=== PATIENT | male | born 1940 | race Caucasian/White ===

== ENCOUNTER 2018-11-05 14:42 | Inpatient (IN) | payer OTHER ==
[2018-11-05] MEDS ORDERED: NS 1,000 ML IV ONE ×2 (17:44→19:44)
--- NOTE | 2018-11-05 17:56 | EDPHY ---
H & P Stated Complaint: severe diarrhea x 2 days. denies n/v Time Seen by Provider: 11/05/18 17:43 HPI/ROS: CHIEF COMPLAINT: Diarrhea, generalized weakness HISTORY OF PRESENT ILLNESS: 78-year-old male with Parkinson's disease presents with 2 day history of diarrhea. Onset watery diarrhea without blood 2 days ago. Too many episodes of diarrhea count, according to the patient. Associated with mild abdominal cramping. No fever, nausea or vomiting. Multiple residents at [facility] have similar symptoms. REVIEW OF SYSTEMS: complete 10 point ROS reviewed and is negative except for the noted elements in the HPI Source: Patient - Medical/Surgical History Hx Asthma: No Hx Chronic Respiratory Disease: No Hx Diabetes: No Hx Cardiac Disease: Yes Hx Renal Disease: No Hx Cirrhosis: No Hx Alcoholism: No Hx HIV/AIDS: No Hx Splenectomy or Spleen Trauma: No Other PMH: HTN, Parkinsons, back surgery, hernia repair - Social History Smoking Status: Former smoker Drug Use: None Additional Social History: Lives at [facility] - Physical Exam Exam: General Appearance: Alert, pleasant, nontoxic-appearing Eyes: Pupils equal and round, no conjunctival pallor or injection ENT, Mouth: Mucous membranes slightly dry Neck: Normal inspection Respiratory: Lungs are clear to auscultation Cardiovascular: Regular rate and rhythm Gastrointestinal: Abdomen is soft and nontender Neurological: A&O, nonfocal exam Skin: Warm and dry, no rash Extremities: Nontender, no pedal edema Psychiatric: Mood and affect normal Constitutional: Initial Vital Signs Temperature (C) 36.3 C 11/05/18 14:51 Heart Rate 75 11/05/18 14:51 Respiratory Rate 18 11/05/18 14:51 Blood Pressure 129/105 H 11/05/18 14:51 O2 Sat (%) 96 11/05/18 14:51 O2 Delivery Mode Room Air Allergies/Adverse Reactions: Sulfa (Sulfonamide Antibiotics) Allergy (Verified 11/05/18 19:51) whole body rash Home Medications: Medication Instructions Recorded Carbidopa/Levo Cr 50/200Mg 2 tab PO BID 11/05/18 [SINEMET CR 50/200 MG (*)] Carbidopa/Levodopa 25/100Mg 2 tab PO 06,10,12,1430,18 11/05/18 [Sinemet 25/100 MG (*)] Cyanocobalamin [Vitamin B12 (*)] 100 mcg PO DAILY 11/05/18 Entacapone [Comtan 200 MG (RX)] 200 mg PO 06,10,12,1430,18 11/05/18 Ferrous Sulfate [Ferrous Sulf 325 325 mg PO TID 11/05/18 MG (*)] Latanoprost 0.005% [Xalatan 0.005% 1 drops EACHEYE HS 11/05/18 (*)] Lisinopril [Zestril 10 mg (*)] 15 mg PO HS 11/05/18 Naproxen [Naprosyn] 500 mg PO BID 11/05/18 Pramipexole Di-HCl [Mirapex 1 mg 0.5 mg PO 06,10,12,1430 11/05/18 (*)] Simvastatin [Zocor] 20 mg PO HS 11/05/18 Vit C/Dl-E AC/Lut/Copper/Znox 1 each PO BID 11/05/18 [Preservision Softgel] Medical Decision Making ED Course/Re-evaluation: This patient presents with diarrhea and dehydration. Initial blood pressure is 90/60. IV normal saline 1 L given and a GI pathogen panel was sent. Creatinine 2.0, no prior creatinine for comparison. Probable acute renal failure secondary to dehydration. 7:15 p.m.-Blood pressure 100/55, patient feels and looks better. GI pathogen panel still pending. IV fluids infusing. Will admit for rehydration and further observation. The hospitalist service was consulted for admission. Abdominal exam remains benign. Differential Diagnosis: Differential diagnosis includes though it is not limited to appendicitis, cholecystitis, diverticulitis, pyelonephritis, bowel perforation, small bowel obstruction. - Data Points Laboratory Results: Laboratory Results 11/05/18 18:00 11/05/18 18:00 11/05/18 11/05/18 18:00 18:00 WBC 6.28 10^3/uL 10^3/uL (3.80-9.50) RBC 4.19 10^6/uL L 10^6/uL (4.40-6.38) Hgb 13.5 g/dL L g/dL (13.7-17.5) Hct 41.3 % % (40.0-51.0) MCV 98.6 fL fL (81.5-99.8) MCH 32.2 pg pg (27.9-34.1) MCHC 32.7 g/dL g/dL (32.4-36.7) RDW 12.1 % % (11.5-15.2) Plt Count 164 10^3/uL 10^3/uL (150-400) MPV 11.4 fL fL (8.7-11.7) Neut % (Auto) 82.7 % H % (39.3-74.2) Lymph % (Auto) 10.4 % L % (15.0-45.0) [place]pson % (Auto) 5.3 % % (4.5-13.0) Eos % (Auto) 1.1 % % (0.6-7.6) Baso % (Auto) 0.2 % L % (0.3-1.7) Nucleat RBC Rel Count 0.0 % % (0.0-0.2) Absolute Neuts (auto) 5.20 10^3/uL 10^3/uL (1.70-6.50) Absolute Lymphs (auto) 0.65 10^3/uL L 10^3/uL (1.00-3.00) Absolute Monos (auto) 0.33 10^3/uL 10^3/uL (0.30-0.80) Absolute Eos (auto) 0.07 10^3/uL 10^3/uL (0.03-0.40) Absolute Basos (auto) 0.01 10^3/uL L 10^3/uL (0.02-0.10) Absolute Nucleated RBC 0.00 10^3/uL 10^3/uL (0-0.01) Immature Gran % 0.3 % % (0.0-1.1) Immature Gran # 0.02 10^3/uL 10^3/uL (0.00-0.10) Sodium 138 mEq/L mEq/L (135-145) Potassium 4.5 mEq/L mEq/L (3.5-5.2) Chloride 109 mEq/L mEq/L (97-110) Carbon Dioxide 22 mEq/l mEq/l (22-31) Anion Gap 7 mEq/L mEq/L (6-14) BUN 56 mg/dL H mg/dL (7-23) Creatinine 2.0 mg/dL H mg/dL (0.7-1.3) Estimated GFR 32 Glucose 105 mg/dL H mg/dL (70-100) Calcium 8.6 mg/dL mg/dL (8.5-10.4) Microbiology Results: MICROBIOLOGY 11/05/18 15:30 Stool Gastrointestinal Tract Panel (PCR) - Final Norovirus Gi/Gii Medications Given: Atorvastatin Calcium (Lipitor) 10 mg PO HS FERNANDO Stop: 05/04/19 20:59 Last Admin: 11/05/18 22:40 Dose: 10 mg Ferrous Sulfate (Ferrous Sulfate) 325 mg PO TID FERNANDO Stop: 05/04/19 21:59 Last Admin: 11/05/18 22:40 Dose: 325 mg Sodium Chloride (Ns) 1,000 mls @ 125 mls/hr IV CONT FERNANDO Stop: 05/04/19 21:29 Last Admin: 11/05/18 22:41 Dose: 1,000 mls Discontinued Medications Sodium Chloride (Ns) 1,000 mls @ 0 mls/hr IV EDNOW ONE; Wide Open PRN Reason: Protocol Stop: 11/05/18 17:45 Last Admin: 11/05/18 18:04 Dose: 1,000 mls Sodium Chloride (Ns) 1,000 mls @ 0 mls/hr IV EDNOW ONE; Wide Open PRN Reason: Protocol Stop: 11/05/18 19:45 Last Admin: 11/05/18 19:56 Dose: 1,000 mls Departure - Departure Disposition: [facility] In[facility] Acute Clinical Impression: Diarrhea Qualifiers: Diarrhea type: presumed infectious Qualified Code(s): R19.7 - Diarrhea, unspecified Acute renal failure Qualifiers: Acute renal failure type: unspecified Qualified Code(s): N17.9 - Acute kidney failure, unspecified Condition: Fair
[2018-11-05 18:16] LABS: PLATELET COUNT 164 10^3/uL (150-400)
[2018-11-05] MEDS ORDERED: HYDROmorphONE/DILAUDID 1 MG/ML INJ IVP PRN (21:17)
[2018-11-05] MEDS ORDERED: ONDANSETRON DISINTEGRATING 4 MG TAB PO PRN (21:17)
[2018-11-05] MEDS ORDERED: ACETAMINOPHEN 325 MG TAB PO PRN (21:17)
[2018-11-05] MEDS ORDERED: ONDANSETRON 4 MG/2 ML VIAL IVP PRN (21:17)
[2018-11-05] MEDS ORDERED: oxyCODONE IR 5 MG TAB PO PRN (21:17)
--- NOTE | 2018-11-05 21:21 | PDGENHP ---
History and Physical - Chief Complaint diarrhea - History of Present Illness 78yo M with Parkinson's disease here with 2 days of watery diarrhea. Having over 10 bowel movements/day. Non-bloody. Some abdominal cramping and his left inguinal hernia (that he's known about) is bothering him a bit more than usual. He states that "virtually everyone" at [facility] (where he lives) also has diarrhea. Denies nausea, vomiting, fevers, chills. No recent antibiotics. In the ED, his stool sample tested positive for norovirus. He had a BP of 90/60s ( he carries diagnosis of hypertension). He was also found to have an elevated creatinine and is being admitted for further management. History Information - Allergies/Home Medication List Allergies/Adverse Reactions: Sulfa (Sulfonamide Antibiotics) Allergy (Verified 11/05/18 19:51) whole body rash Home Medications: Carbidopa/Levo Cr 50/200Mg [SINEMET CR 50/200 MG (*)] 2 tab PO BID 11/05/18 [ Last Taken 11/05/18 09:00] Carbidopa/Levodopa 25/100Mg [Sinemet 25/100 MG (*)] 2 tab PO 06,10,12,1430,18 [Last Taken 11/05/18 14:30] Cyanocobalamin [Vitamin B12 (*)] 100 mcg PO DAILY 11/05/18 [Last Taken Unknown] Entacapone [Comtan 200 MG (RX)] 200 mg PO 06,10,12,1430,18 11/05/18 [Last Taken 11/05/18 14:30] Ferrous Sulfate [Ferrous Sulf 325 MG (*)] 325 mg PO TID 11/05/18 [Last Taken Unknown] Latanoprost 0.005% [Xalatan 0.005% (*)] 1 drops EACHEYE HS 11/05/18 [Last Taken 11/04/18] Lisinopril [Zestril 10 mg (*)] 15 mg PO HS 11/05/18 [Last Taken 11/04/18] Naproxen [Naprosyn] 500 mg PO BID 11/05/18 [Last Taken 11/05/18 09:00] Pramipexole Di-HCl [Mirapex 1 mg (*)] 0.5 mg PO 06,10,12,1430 11/05/18 [Last Taken 11/05/18 14:30] Simvastatin [Zocor] 20 mg PO HS 11/05/18 [Last Taken 11/04/18] Vit C/Dl-E AC/Lut/Copper/Znox [Preservision Softgel] 1 each PO BID 11/05/18 [ Last Taken 11/05/18 09:00] I have personally reviewed and updated: family history, medical history, social history, surgical history - Past Medical History Additional medical history: Parkinson's disease, HTN, HLD, iron deficiency - Surgical History Additional surgical history: right inguinal hernia repair x2, spine surgery - Family History Positive for: non-pertinent - Social History Smoking Status: Former smoker Alcohol Use: Rarely Drug Use: None Additional social history: Lives in [facility] for last 2.5 years. [place] in area. Bikes 10-15 miles/day. Review of Systems Review of Systems: ROS: 10pt was reviewed & negative except for what was stated in HPI & below Physical Exam Physical Exam: Temp Pulse Resp BP Pulse Ox 36.4 C 70 16 122/61 H 97 11/05/18 20:40 11/05/18 20:40 11/05/18 20:40 11/05/18 20:40 11/05/18 20:40 O2 (L/minute) 95 Constitutional: no apparent distress, appears nourished, not in pain Eyes: PERRL, anicteric sclera, EOMI Ears, Nose, Mouth, Throat: dry mucous membranes Cardiovascular: regular rate and rhythym, no murmur, rub, or gallop, No edema Respiratory: no respiratory distress, no rales or rhonchi, clear to auscultation Gastrointestinal: normoactive bowel sounds, no palpable masses, tenderness ( lower quadrants) Genitourinary: no bladder fullness, no bladder tenderness Skin: warm, normal color, no rashes or abrasions, no fluctuance, no induration, No mottled Musculoskeletal: full muscle strength, no muscle tenderness, normal joint ROM, no joint effusions Neurologic: AAOx3 Psychiatric: interacting appropriately, not anxious, not encephalopathic, thought process linear Lab Data & Imaging Review 11/05/18 18:00 11/05/18 18:00 WBC 6.28 10^3/uL (3.80-9.50) 11/05/18 18:00 RBC 4.19 10^6/uL (4.40-6.38) L 11/05/18 18:00 Hgb 13.5 g/dL (13.7-17.5) L 11/05/18 18:00 Hct 41.3 % (40.0-51.0) 11/05/18 18:00 MCV 98.6 fL (81.5-99.8) 11/05/18 18:00 MCH 32.2 pg (27.9-34.1) 11/05/18 18:00 MCHC 32.7 g/dL (32.4-36.7) 11/05/18 18:00 RDW 12.1 % (11.5-15.2) 11/05/18 18:00 Plt Count 164 10^3/uL (150-400) 11/05/18 18:00 MPV 11.4 fL (8.7-11.7) 11/05/18 18:00 Neut % (Auto) 82.7 % (39.3-74.2) H 11/05/18 18:00 Lymph % (Auto) 10.4 % (15.0-45.0) L 11/05/18 18:00 [place] % (Auto) 5.3 % (4.5-13.0) 11/05/18 18:00 Eos % (Auto) 1.1 % (0.6-7.6) 11/05/18 18:00 Baso % (Auto) 0.2 % (0.3-1.7) L 11/05/18 18:00 Nucleat RBC Rel Count 0.0 % (0.0-0.2) 11/05/18 18:00 Absolute Neuts (auto) 5.20 10^3/uL (1.70-6.50) 11/05/18 18:00 Absolute Lymphs (auto) 0.65 10^3/uL (1.00-3.00) L 11/05/18 18:00 Absolute Monos (auto) 0.33 10^3/uL (0.30-0.80) 11/05/18 18:00 Absolute Eos (auto) 0.07 10^3/uL (0.03-0.40) 11/05/18 18:00 Absolute Basos (auto) 0.01 10^3/uL (0.02-0.10) L 11/05/18 18:00 Absolute Nucleated RBC 0.00 10^3/uL (0-0.01) 11/05/18 18:00 Immature Gran % 0.3 % (0.0-1.1) 11/05/18 18:00 Immature Gran # 0.02 10^3/uL (0.00-0.10) 11/05/18 18:00 Sodium 138 mEq/L (135-145) 11/05/18 18:00 Potassium 4.5 mEq/L (3.5-5.2) 11/05/18 18:00 Chloride 109 mEq/L (97-110) 11/05/18 18:00 Carbon Dioxide 22 mEq/l (22-31) 11/05/18 18:00 Anion Gap 7 mEq/L (6-14) 11/05/18 18:00 BUN 56 mg/dL (7-23) H 11/05/18 18:00 Creatinine 2.0 mg/dL (0.7-1.3) H 11/05/18 18:00 Estimated GFR 32 11/05/18 18:00 Glucose 105 mg/dL (70-100) H 11/05/18 18:00 Calcium 8.6 mg/dL (8.5-10.4) 11/05/18 18:00 Assessment & Plan Assessment: 78yo M with Parkinson's disease who lives in assisted living here with 2 days of watery diarrhea found to have norovirus. Plan: 1. Diarrhea 2/2 norovirus infection: non-peritoneal abdomen - Supportive care with IVF, anti-emetics, electrolyte replacement - Contact and droplet precautions 2. Elevated creatinine: No prior for comparison but suspect KARISSA due to dehydration. - IVF as above and recheck in AM, if not improving would investigate further 3. Hypotension: Suspect related to hypovolemia. Improving with fluids and now normotensive. - Management as above 4. Parkinson's disease - Continue home meds - PT/OT VTE ppx: LMWH Code: full Diet: regular as tolerates Dispo: Admit under observation
[2018-11-05] MEDS: ATORVASTATIN CALCIUM 10 MG TAB PO SCH (22:40)
[2018-11-05] MEDS: FERROUS SULFATE 325 MG TAB PO SCH (22:40)
[2018-11-05] MEDS: NS 1,000 ML IV SCH (22:41)
[2018-11-05] MEDS: PRAMIPEXOLE 1 MG TAB PO SCH (23:41)
[2018-11-05] MEDS: CARBIDOPA/LEVO CR 50 MG/200 MG TAB PO SCH (23:41)
[2018-11-05] MEDS: ENTACAPONE 200 MG TAB PO SCH (23:43)
[2018-11-06] MEDS: ENTACAPONE 200 MG TAB PO SCH ×5 (05:34→17:48)
[2018-11-06] MEDS: PRAMIPEXOLE 1 MG TAB PO SCH ×4 (05:35→14:54)
[2018-11-06 05:39] LABS: PLATELET COUNT 124 10^3/uL (150-400)
[2018-11-06] MEDS: CARBIDOPA/LEVODOPA 25 MG/100 MG TAB PO SCH ×5 (05:43→17:48)
[2018-11-06] MEDS: ENOXAPARIN 30 MG/0.3 ML SYR SC SCH (07:46)
[2018-11-06] MEDS: FERROUS SULFATE 325 MG TAB PO SCH ×3 (07:46→20:55)
[2018-11-06] MEDS: CARBIDOPA/LEVO CR 50 MG/200 MG TAB PO SCH ×2 (08:55→20:55)
--- NOTE | 2018-11-06 11:04 | ASMTCMCOM ---
CM Note CM Note Notes: CM reviewed chart for d/c planning. Pt is an 78y/o male with Parkinson's disease who presented at the ED with 2 days of diarrhea accompanied by mild abdominal cramping. Pt lives at [facility] in their independent living program. PT and OT have not been ordered. He does receive these when he is home. [facility] was contacted and due to his living independently they will not require records prior to his return. D/C Plan: Anticipate independent. Date Signed: 11/06/2018 11:04 AM Electronically Signed By:Lauren Ballard
--- NOTE | 2018-11-06 13:19 | ASMTCMCOM ---
CM Note CM Note Notes: Per Dr augustine, D/C likely tomorrow. D/C Plan: [facility] Date Signed: 11/06/2018 01:18 PM Electronically Signed By:Lauren Ballard
[2018-11-06] MEDS: NS 1,000 ML IV SCH ×2 (15:13→20:56)
--- NOTE | 2018-11-06 16:10 | HOSPPROG ---
Hospitalist Progress Note Assessment/Plan: 78yo M with Parkinson's disease who lives in assisted living here with 2 days of watery diarrhea found to have norovirus. 1. Diarrhea 2/2 norovirus infection: non-peritoneal abdomen - Supportive care with IVF, anti-emetics, electrolyte replacement - Contact and droplet precautions 2. Elevated creatinine: No prior for comparison but suspect KARISSA due to dehydration. - S/p IVF, Cr improved from 2.0 to 1.3 this AM, continue IVF, repeat Cr in the AM 3. Hypotension: Suspect related to hypovolemia. Improving with fluids and now normotensive. 4. Parkinson's disease - Continue home meds - PT/OT VTE ppx: LMWH Code: full Diet: regular as tolerates Dispo: Pending clinical course, if Cr continues to improve with continued improvement in symptoms will d/c tomorrow Subjective: Patient reports improvement in fatigue this AM Objective: Vital Signs Temp Pulse Resp BP Pulse Ox 36.8 C 66 16 100/55 L 95 11/06/18 07:40 11/06/18 07:40 11/06/18 07:40 11/06/18 07:40 11/06/18 07:40 Laboratory Results 11/06/18 05:07 11/06/18 05:07 11/05/18 11/06/18 11/07/18 05:59 05:59 05:59 Intake Total 3320 Output Total 225 400 Balance 3095 -400 - Physical Exam Constitutional: no apparent distress Eyes: PERRL Ears, Nose, Mouth, Throat: moist mucous membranes Cardiovascular: regular rate and rhythym Respiratory: no respiratory distress Gastrointestinal: soft, non-tender abdomen Skin: warm Neurologic: AAOx3 Psychiatric: interacting appropriately ICD10 Worksheet Patient Problems: Problems Problem Status Onset Acute renal failure Acute Diarrhea Acute
[2018-11-06] MEDS ORDERED: PRAMIPEXOLE 1 MG TAB PO SCH (18:30)
[2018-11-06] MEDS: ATORVASTATIN CALCIUM 10 MG TAB PO SCH (20:55)
[2018-11-06] MEDS ORDERED: LATANOPROST 0.005% 2.5 ML OPHT DROPS EACHEYE SCH (21:00)
--- NOTE | 2018-11-06 21:21 | PDMN ---
Medical Necessity Medical necessity: Change to inpt as of 11/06/18 @ 15:41 per MD order and MCG M- 170, Gastroenteritis. 78 y/o w/Parkinsons disease admitted w/diarrhea sec to norovirus, KARISSA, and hypotension. Upgraded to inpt, need for further IVF, follow BUN/creatinine, PT/OT evals pending, calcium low at 7.6. Est LOS>2MN for ongoing management of above.
[2018-11-07] MEDS ORDERED: MELATONIN 3 MG TAB PO PRN (01:08)
[2018-11-07] MEDS: ENTACAPONE 200 MG TAB PO SCH ×2 (05:13→10:51)
[2018-11-07] MEDS: PRAMIPEXOLE 1 MG TAB PO SCH ×2 (05:13→10:51)
[2018-11-07] MEDS: CARBIDOPA/LEVODOPA 25 MG/100 MG TAB PO SCH ×2 (05:13→10:50)
[2018-11-07] MEDS: NS 1,000 ML IV SCH (05:15)
[2018-11-07] MEDS: CARBIDOPA/LEVO CR 50 MG/200 MG TAB PO SCH (07:52)
[2018-11-07] MEDS: FERROUS SULFATE 325 MG TAB PO SCH (07:52)
[2018-11-07] MEDS: ENOXAPARIN 30 MG/0.3 ML SYR SC SCH (07:52)
[2018-11-07 08:10] VITALS: BP 123/69
--- NOTE | 2018-11-07 10:06 | ASMTLACE ---
LACE Length of stay for Answers: 1 day current admission Acuity / Level of Answers: Yes Care: Did the patient have an inpatient admission? Comorbidities - select Answers: Opioid dependence all that apply / Chronic pain Other Notes: Parkinson's disease; HTN; HLD # of Emergency department Answers: 1-2 visits in the last 6 months Score: 10 Date Signed: 11/07/2018 10:06 AM Electronically Signed By:Mylene Montiel RN
--- NOTE | 2018-11-07 12:57 | PDDCSUM ---
Discharge Summary Discharge Summary: Date of Admission: 11/05/2018 Date of Discharge: 11/07/2018 Consults: N/A Followup: PCP Hospital Course Problem List: 78yo M with Parkinson's disease who lives in assisted living admitted with 2 days of watery diarrhea found to have norovirus. 1. Diarrhea 2/2 norovirus infection: non-peritoneal abdomen - Supportive care with IVF, anti-emetics, electrolyte replacement - Contact and droplet precautions 2. Elevated creatinine: No prior for comparison but suspect KARISSA due to dehydration. - S/p IVF, Cr improved from 2.0 to 0.9 this AM 3. Hypotension: Suspect related to hypovolemia. Improved with fluids and now normotensive. 4. Parkinson's disease - Continue home meds - PT/OT Time spent on discharge was >35 minutes with >50% of time spent on patient education and counseling.
--- NOTE | 2018-11-07 16:02 | ASDISCHSUM ---
Discharge Information Plan Status:Home with No Needs Medically Cleared to Leave: Discharge Date:11/07/2018 11:52 AM CM D/C Disposition: ADT D/C Disposition:Home, Routine, Self-Care Projected Discharge Date:11/08/2018 11:00 AM Transportation at D/C:Family Discharge Delay Reason: Follow-Up Date:11/08/2018 11:00 AM Discharge Slot: Final Diagnosis: Placement Information Referral Type:*Usp/SNF Referral ID:[id number] Provider Name: Address 1: Phone Number: Address 2: Fax Number: City: Selection Factors: State: Patient Contact Information Contact Name:LISSETT Relationship:Daughter Address: Work Phone: City: [facility] Phone: [facility] Code: Email: Financial Information Financial Class:Medicare Primary Plan Desc:MEDICARE INPATIENT Primary Plan Number:[id number] Secondary Plan Desc: Secondary Plan Number: Assessment Information LACE LACE Length of stay for Answers: 1 day current admission Acuity / Level of Answers: Yes Care: Did the patient have an inpatient admission? Comorbidities - select Answers: Opioid dependence all that apply / Chronic pain Other Notes: Parkinson's disease; HTN; HLD # of Emergency department Answers: 1-2 visits in the last 6 months Score: 10 Date Signed: 11/07/2018 10:06 AM Electronically Signed By:Mylene Montiel RN [facility] CM Progress Note CM Note CM Note Notes: KORTNEY reviewed chart for d/c planning. Pt is an 78y/o male with Parkinson's disease who presented at the ED with 2 days of diarrhea accompanied by mild abdominal cramping. Pt lives at [facility] in their independent living program. PT and OT have not been ordered. He does receive these when he is home. [facility] was contacted and due to his living independently they will not require records prior to his return. D/C Plan: Anticipate independent. Date Signed: 11/06/2018 11:04 AM Electronically Signed By:Lauren Ballard [facility] CM Progress Note CM Note CM Note Notes: Per Yuly Nieto likely tomorrow. D/C Plan: [facility] Date Signed: 11/06/2018 01:18 PM Electronically Signed By:Lauren Ballard Intervention Information Intervention Type:*Occurence 72 Date of Service:11/07/2018 12:16 PM Patient Type:Inpatient Staff Member:Oneida Bush Hours: Discipline: Severity: Comment:
== END 2018-11-07 11:52 | disposition home or self-care (01) | DRG 392 ==
LOC: F3E 20:20 → OBSVTOIN 11-06 15:41
PROVIDERS: ADMIT Internal Medicine; ATTEND Internal Medicine
DX: A08.11 Acute gastroenteropathy due to Norwalk agent (principal); N17.9 Acute kidney failure, unspecified; E86.0 Dehydration; I95.9 Hypotension, unspecified; G20 Parkinson's disease; I10 Essential (primary) hypertension
CPT/HCPCS: G0378; J1650

== ENCOUNTER 2019-01-06 14:16 | Inpatient (IN) | payer OTHER ==
--- NOTE | 2019-01-06 14:56 | EDPHY ---
H & P Time Seen by Provider: 01/06/19 14:55 HPI/ROS: CHIEF COMPLAINT: Back pain radiating to right groin and leg HISTORY OF PRESENT ILLNESS: Patient was recently pretty active riding his bicycle as much as 40 miles at a time last summer. He did have 2 falls back last week in July and in August and had evaluation at the [facility] after that. He was hospitalized for norovirus in October. He was last seen at the [facility] on December 20. Over the past 2 weeks he said he is having worsening back pain which radiates to his right groin and down his right leg. Sometimes worse with movement but better lying down. It is also associated with pain over his right inguinal hernia repair area. No vomiting or diarrhea. No incontinence or weakness or numbness of the leg or foot. The nurse's notes stated right leg paresthesia but the patient denies any decreased sensation there. Patient says his pain is more severe over the last 2 weeks and he is using a wheelchair and can't walk. He is in independent living at [facility]. Symptoms severe. REVIEW OF SYSTEMS: Eye: no change in vision ENT: no sore throat Cardiac: no chest pain or syncope Pulmonary: no cough or SOB Abdomen: HPI Musculoskeletal: HPI Skin: no rash Neuro: HPI Constitutional: no fever : no urinary symptoms A comprehensive 10 point review of systems is otherwise negative aside from elements mentioned in the history of present illness. PAST MEDICAL HISTORY: Includes hypertension and Parkinson's, back surgery and right inguinal hernia repair Social history: Independent living at [facility] General Appearance: Alert and conversant, cooperative. Eyes: No scleral icterus. ENT, Mouth: Normal mucous membranes. Respiratory: Normal respiratory effort, breath sounds equal, lungs are clear to auscultation. Cardiovascular: Regular rate and rhythm. Gastrointestinal: Abdomen is soft and non tender. Not distended, normal bowel sounds, no hernia palpated. Normal male . Neurological: Alert, face symmetric, normal motor and sensory in extremities. No clonus, toes downgoing bilaterally, can lift each leg above the bed independently. Right patellar reflexes 1+ and left is 2+. Skin: Warm and dry, no rashes. Musculoskeletal: No peripheral edema. No midline spinal tenderness. Psychiatric: Not agitated. Emergency Department course/MDM: Patient presents with more likely sciatic symptoms. He does have some abdominal pain. He presents with a CT report from the [facility] dated December 20 which I suspect is not his actual images. The CT report reference is a gastric pull-through and the patient states he has never had gastric surgery before. Plan for pain medication, labs, lumbar spine x-ray, admission for further workup. Unable to ambulate so inappropriate to discharge back to independent living. The at this point I think clinically it is unlikely that he has cauda equina syndrome, acute surgical abdominal process, spinal column fracture, acute infectious process. Smoking Status: Former smoker Constitutional: Initial Vital Signs Temperature (C) 36.5 C 01/06/19 14:38 Heart Rate 75 01/06/19 14:38 Respiratory Rate 18 01/06/19 14:38 Blood Pressure 144/70 H 01/06/19 14:38 O2 Sat (%) 95 01/06/19 14:38 O2 Delivery Mode Room Air Allergies/Adverse Reactions: Sulfa (Sulfonamide Antibiotics) Allergy (Verified 01/06/19 14:38) whole body rash Home Medications: Medication Instructions Recorded Carbidopa/Levo Cr 50/200Mg 2 tab PO BID 11/05/18 [SINEMET CR 50/200 MG (*)] Carbidopa/Levodopa 25/100Mg 2 tab PO 06,10,12,1430,18 11/05/18 [Sinemet 25/100 MG (*)] Entacapone [Comtan] 200 mg PO 06,10,12,1430,18 11/05/18 Ferrous Sulfate [Ferrous Sulf 325 325 mg PO TID 11/05/18 MG (*)] Latanoprost 0.005% [Xalatan 0.005% 1 drops EACHEYE HS 11/05/18 (*)] Lisinopril [Zestril 10 mg (*)] 15 mg PO BID 11/05/18 Naproxen [Naprosyn] 500 mg PO BID 11/05/18 Pramipexole Di-HCl [Mirapex 1 mg 0.5 mg PO 10,12,1430,18 11/05/18 (*)] Simvastatin [Zocor] 10 mg PO HS 11/05/18 Acetaminophen [Tylenol 8 Hour] 650 mg PO Q8HRS PRN 01/06/19 C/E/Zn/Cu/OM3/DHA/EPA/LUT/ZEAX 1 each PO BID 01/06/19 [Preservision Areds 2 Softgel] Cholecalciferol Vit D3 [Vitamin D3 1,000 units PO DAILY 01/06/19 (*)] Cyanocobalamin [Vitamin B12 (*)] 1,000 mcg PO DAILY 01/06/19 Diclofenac Sodium 1% [Voltaren Gel 2 gm TP QID PRN 01/06/19 (*)] traMADol [Ultram 50 mg (*)] 50 mg PO Q4 PRN 01/06/19 Medical Decision Making - Diagnostics Imaging Results: Imaging Impressions Hip X-Ray 01/06/19 15:16 Impression: Evidence of underlying femoral acetabular impingement, cam type, right hip. Mild early degenerative change right hip. No evidence for acute fracture. Lumbar Spine X-Ray 01/06/19 15:16 Impression: Postsurgical changes of fusion L4-L5, as above. Mild anterolisthesis of L3 on L4 and L4 on L5. Multilevel degenerative disk and degenerative joint disease. Levoscoliotic curvature. Imaging: I viewed and interpreted images myself Consult/Admit Bed Type: [place] [id number] - Data Points Laboratory Results: Laboratory Results 01/06/19 15:25 01/06/19 15:25 01/06/19 01/06/19 01/06/19 15:35 15:25 15:25 WBC 5.02 10^3/uL 10^3/uL (3.80-9.50) RBC 3.88 10^6/uL L 10^6/uL (4.40-6.38) Hgb 12.8 g/dL L g/dL (13.7-17.5) Hct 38.7 % L % (40.0-51.0) MCV 99.7 fL fL (81.5-99.8) MCH 33.0 pg pg (27.9-34.1) MCHC 33.1 g/dL g/dL (32.4-36.7) RDW 11.9 % % (11.5-15.2) Plt Count 178 10^3/uL 10^3/uL (150-400) MPV 11.9 fL H fL (8.7-11.7) Neut % (Auto) 62.7 % % (39.3-74.2) Lymph % (Auto) 25.9 % % (15.0-45.0) [place] % (Auto) 8.8 % % (4.5-13.0) Eos % (Auto) 1.8 % % (0.6-7.6) Baso % (Auto) 0.6 % % (0.3-1.7) Nucleat RBC Rel Count 0.0 % % (0.0-0.2) Absolute Neuts (auto) 3.15 10^3/uL 10^3/uL (1.70-6.50) Absolute Lymphs (auto) 1.30 10^3/uL 10^3/uL (1.00-3.00) Absolute Monos (auto) 0.44 10^3/uL 10^3/uL (0.30-0.80) Absolute Eos (auto) 0.09 10^3/uL 10^3/uL (0.03-0.40) Absolute Basos (auto) 0.03 10^3/uL 10^3/uL (0.02-0.10) Absolute Nucleated RBC 0.00 10^3/uL 10^3/uL (0-0.01) Immature Gran % 0.2 % % (0.0-1.1) Immature Gran # 0.01 10^3/uL 10^3/uL (0.00-0.10) Sodium 139 mEq/L mEq/L (135-145) Potassium 4.3 mEq/L mEq/L (3.5-5.2) Chloride 108 mEq/L mEq/L (97-110) Carbon Dioxide 24 mEq/l mEq/l (22-31) Anion Gap 7 mEq/L mEq/L (6-14) BUN 22 mg/dL mg/dL (7-23) Creatinine 0.9 mg/dL mg/dL (0.7-1.3) Estimated GFR > 60 Glucose 97 mg/dL mg/dL (70-100) Calcium 9.1 mg/dL mg/dL (8.5-10.4) Urine Color YELLOW Urine Appearance CLEAR Urine pH 5.0 (5.0-7.5) Ur Specific [place] 1.016 (1.002-1.030) Urine Protein NEGATIVE (NEGATIVE) Urine Ketones TRACE H (NEGATIVE) Urine Blood NEGATIVE (NEGATIVE) Urine Nitrate NEGATIVE (NEGATIVE) Urine Bilirubin NEGATIVE (NEGATIVE) Urine Urobilinogen NEGATIVE EU EU (0.2-1.0) Ur Leukocyte Esterase NEGATIVE (NEGATIVE) Ur Culture Indicated? NOT INDICATED (NI) Urine Glucose NEGATIVE (NEGATIVE) Medications Given: Discontinued Medications Morphine Sulfate (Morphine) 6 mg IVP EDNOW ONE Stop: 01/06/19 15:17 Last Admin: 01/06/19 15:57 Dose: 6 mg Departure - Departure Disposition: Home, Routine, Self-Care Clinical Impression: Back pain Qualifiers: Back pain location: low back pain Chronicity: unspecified Back pain laterality : right Sciatica presence: with sciatica Sciatica laterality: sciatica of right side Qualified Code(s): M54.41 - Lumbago with sciatica, right side Condition: Fair
[2019-01-06 15:37] LABS: PLATELET COUNT 178 10^3/uL (150-400)
[2019-01-06] MEDS ORDERED: HYDROCODONE/APAP 5/325 TAB PO PRN (17:26)
[2019-01-06] MEDS ORDERED: ACETAMINOPHEN 325 MG TAB PO PRN (17:26)
[2019-01-06] MEDS ORDERED: ONDANSETRON DISINTEGRATING 4 MG TAB PO PRN (17:26)
[2019-01-06] MEDS ORDERED: PROMETHAZINE HCL 25 MG/ML INJ IVP PRN (17:26)
[2019-01-06] MEDS ORDERED: ONDANSETRON 4 MG/2 ML VIAL IVP PRN (17:26)
[2019-01-06] MEDS ORDERED: DICLOFENAC SODIUM 1% 100 GM GEL TP PRN (17:30)
--- NOTE | 2019-01-06 17:32 | PDGENHP ---
History and Physical - Chief Complaint back pain, cant walk - History of Present Illness 78 yo M with PMH of PD and prior spinal surgeries who presents with concerns that he is having increasing back pain to the point where he is no longer able to walk. He states he fell a couple of times recently and since then the pain has gotten worse and worse and now he is really not able to walk. He has shooting pain down his right leg and in his lower back as well as over his right groin. He has had previous inguinal hernia surgery in the right groin with mesh placement and is afraid the pain is due to migration of the mesh. He feels both his legs are weak, not one more than the other. [facility] not been happy with their care. Recently he was given the option to see a surgeon outside of their system and becomes tearful talking about this experience and noting how much better he felt the care was. He states he has significant emotional lability due to his PD and is somewhat embarassed about the crying. History Information - Allergies/Home Medication List Allergies/Adverse Reactions: Sulfa (Sulfonamide Antibiotics) Allergy (Verified 01/06/19 14:38) whole body rash Home Medications: Carbidopa/Levo Cr 50/200Mg [SINEMET CR 50/200 MG (*)] 2 tab PO BID 11/05/18 [ Last Taken 11/05/18 09:00] Carbidopa/Levodopa 25/100Mg [Sinemet 25/100 MG (*)] 2 tab PO 06,10,12,1430,18 [Last Taken 11/05/18 14:30] Entacapone [Comtan] 200 mg PO 06,10,12,1430,18 11/05/18 [Last Taken 11/05/18 14: 30] Ferrous Sulfate [Ferrous Sulf 325 MG (*)] 325 mg PO TID 11/05/18 [Last Taken Unknown] Latanoprost 0.005% [Xalatan 0.005% (*)] 1 drops EACHEYE HS 11/05/18 [Last Taken 11/04/18] Lisinopril [Zestril 10 mg (*)] 15 mg PO BID 11/05/18 [Last Taken 11/04/18] Naproxen [Naprosyn] 500 mg PO BID 11/05/18 [Last Taken 11/05/18 09:00] Pramipexole Di-HCl [Mirapex 1 mg (*)] 0.5 mg PO 10,12,1430,18 11/05/18 [Last Taken 11/05/18 14:30] Simvastatin [Zocor] 10 mg PO HS 11/05/18 [Last Taken 11/04/18] Acetaminophen [Tylenol 8 Hour] 650 mg PO Q8HRS PRN 01/06/19 [Last Taken Unknown] C/E/Zn/Cu/OM3/DHA/EPA/LUT/ZEAX [Preservision Areds 2 Softgel] 1 each PO BID [Last Taken Unknown] Cholecalciferol Vit D3 [Vitamin D3 (*)] 1,000 units PO DAILY 01/06/19 [Last Taken Unknown] Cyanocobalamin [Vitamin B12 (*)] 1,000 mcg PO DAILY 01/06/19 [Last Taken Unknown ] Diclofenac Sodium 1% [Voltaren Gel (*)] 2 gm TP QID PRN 01/06/19 [Last Taken Unknown] traMADol [Ultram 50 mg (*)] 50 mg PO Q4 PRN 01/06/19 [Last Taken Unknown] I have personally reviewed and updated: family history, medical history, social history, surgical history - Past Medical History Additional medical history: Parkinson's disease, HTN, HLD, iron deficiency, chronic back pain - Surgical History Additional surgical history: right inguinal hernia repair x3, spine surgery x 2 - Family History Positive for: non-pertinent - Social History Smoking Status: Former smoker Alcohol Use: Rarely Drug Use: None Additional social history: Lives in [facility] for last 2.5 years. [place] in area. Used to bike 10-15 miles per day and is no longer able to Review of Systems Review of Systems: ROS: 10pt was reviewed & negative except for what was stated in HPI & below Physical Exam Physical Exam: Temp Pulse Resp BP Pulse Ox 36.5 C 75 18 144/70 H 95 01/06/19 14:38 01/06/19 14:38 01/06/19 14:38 01/06/19 14:38 01/06/19 14:38 Constitutional: chronically ill appearing, uncomfortable Eyes: PERRL, anicteric sclera Ears, Nose, Mouth, Throat: poor dentition, dry mucous membranes Cardiovascular: regular rate and rhythym, no murmur, rub, or gallop, No edema Respiratory: no respiratory distress, no rales or rhonchi, clear to auscultation Gastrointestinal: normoactive bowel sounds, soft, non-tender abdomen, no palpable masses, tenderness (over right inguinal area) Genitourinary: no bladder tenderness Skin: warm, normal color Musculoskeletal: No full muscle strength, No normal joint ROM Neurologic: AAOx3, weakness (ble 4/5 strenghth though may be limited by pain), CN II-XII Intact, No numbness Psychiatric: interacting appropriately, not anxious, not encephalopathic Lab Data & Imaging Review 01/06/19 15:25 01/06/19 15:25 WBC 5.02 10^3/uL (3.80-9.50) 01/06/19 15:25 RBC 3.88 10^6/uL (4.40-6.38) L 01/06/19 15:25 Hgb 12.8 g/dL (13.7-17.5) L 01/06/19 15:25 Hct 38.7 % (40.0-51.0) L 01/06/19 15:25 MCV 99.7 fL (81.5-99.8) 01/06/19 15:25 MCH 33.0 pg (27.9-34.1) 01/06/19 15:25 MCHC 33.1 g/dL (32.4-36.7) 01/06/19 15:25 RDW 11.9 % (11.5-15.2) 01/06/19 15:25 Plt Count 178 10^3/uL (150-400) 01/06/19 15:25 MPV 11.9 fL (8.7-11.7) H 01/06/19 15:25 Neut % (Auto) 62.7 % (39.3-74.2) 01/06/19 15:25 Lymph % (Auto) 25.9 % (15.0-45.0) 01/06/19 15:25 [place] % (Auto) 8.8 % (4.5-13.0) 01/06/19 15:25 Eos % (Auto) 1.8 % (0.6-7.6) 01/06/19 15:25 Baso % (Auto) 0.6 % (0.3-1.7) 01/06/19 15:25 Nucleat RBC Rel Count 0.0 % (0.0-0.2) 01/06/19 15:25 Absolute Neuts (auto) 3.15 10^3/uL (1.70-6.50) 01/06/19 15:25 Absolute Lymphs (auto) 1.30 10^3/uL (1.00-3.00) 01/06/19 15:25 Absolute Monos (auto) 0.44 10^3/uL (0.30-0.80) 01/06/19 15:25 Absolute Eos (auto) 0.09 10^3/uL (0.03-0.40) 01/06/19 15:25 Absolute Basos (auto) 0.03 10^3/uL (0.02-0.10) 01/06/19 15:25 Absolute Nucleated RBC 0.00 10^3/uL (0-0.01) 01/06/19 15:25 Immature Gran % 0.2 % (0.0-1.1) 01/06/19 15:25 Immature Gran # 0.01 10^3/uL (0.00-0.10) 01/06/19 15:25 Sodium 139 mEq/L (135-145) 01/06/19 15:25 Potassium 4.3 mEq/L (3.5-5.2) 01/06/19 15:25 Chloride 108 mEq/L (97-110) 01/06/19 15:25 Carbon Dioxide 24 mEq/l (22-31) 01/06/19 15:25 Anion Gap 7 mEq/L (6-14) 01/06/19 15:25 BUN 22 mg/dL (7-23) 01/06/19 15:25 Creatinine 0.9 mg/dL (0.7-1.3) 01/06/19 15:25 Estimated GFR > 60 01/06/19 15:25 Glucose 97 mg/dL (70-100) 01/06/19 15:25 Calcium 9.1 mg/dL (8.5-10.4) 01/06/19 15:25 Urine Color YELLOW 01/06/19 15:35 Urine Appearance CLEAR 01/06/19 15:35 Urine pH 5.0 (5.0-7.5) 01/06/19 15:35 Ur Specific [place] 1.016 (1.002-1.030) 01/06/19 15:35 Urine Protein NEGATIVE (NEGATIVE) 01/06/19 15:35 Urine Ketones TRACE (NEGATIVE) H 01/06/19 15:35 Urine Blood NEGATIVE (NEGATIVE) 01/06/19 15:35 Urine Nitrate NEGATIVE (NEGATIVE) 01/06/19 15:35 Urine Bilirubin NEGATIVE (NEGATIVE) 01/06/19 15:35 Urine Urobilinogen NEGATIVE EU (0.2-1.0) 01/06/19 15:35 Ur Leukocyte Esterase NEGATIVE (NEGATIVE) 01/06/19 15:35 Urine Glucose NEGATIVE (NEGATIVE) 01/06/19 15:35 Visualized and Interpreted imaging results: Yes Interpretation: T spine MRI: mild canal stenosis at T7-T8 with mild cord compression. L spine: L3-4 severe canal stenosis R> L. abd ct: large hiatal hernia, heterogenously enlarged prostate 7x 3cm, no inguinal hernia recurrence Assessment & Plan Assessment: 78 yo M with PD and recurrent recent falls presenting with increased radicular lower back pain with lumbar and thoracic stenosis # thoracic and lumbar spine stenosis: mild at t7-t8 but with mild cord compression and severe at L3-L4 likely responsible for his presenting complaints of radicular lower back pain. [facility], unclear if it would be ok to have his treatment here and that needs to be clarified in the morning. Neurosurgery will need to be consulted if he is to remain here for treatment # gait instability: this has been worsening over some time and patient notes that now for the last 2 weeks he is unable to walk at all and needs to use a wheelchair, 2 months ago he was able to bicycle for 10 miles a day. As above. # right inguinal pain: suspect this is related to his lumbar stenosis rather than to his prior inguinal hernia which has not recurred by imaging # PD: progressive, continue his op medications, does have some emotional lability but no significant dementia # HTN: no BP meds on his home med list and BP here has been only mildly elevated , appropriate given his age and underlying PD, monitoring for now # HLD: continue statin # IP status, will either need neurosurgical evaluation here or to be transferred [facility] Patient new to my care. Old records reviewed and summarized as above. Care plan reviewed with ER doctor as above.
[2019-01-06] MEDS ORDERED: IOPAMIDOL (ISOVUE-300) 100 ML BTL ONE (17:36)
[2019-01-06] MEDS: PRAMIPEXOLE 1 MG TAB PO SCH (19:00)
[2019-01-06] MEDS: CARBIDOPA/LEVODOPA 25 MG/100 MG TAB PO SCH (19:01)
[2019-01-06] MEDS: ENTACAPONE 200 MG TAB PO SCH (19:27)
[2019-01-06] MEDS: PRESERVISION AREDS2 FORMULA EYE VIT 1 EACH PO SCH (23:03)
[2019-01-06] MEDS: FERROUS SULFATE 325 MG TAB PO SCH (23:03)
[2019-01-06] MEDS: CARBIDOPA/LEVO CR 50 MG/200 MG TAB PO SCH (23:03)
[2019-01-06] MEDS: LISINOPRIL 10 MG TAB PO SCH (23:09)
[2019-01-06] MEDS: LATANOPROST 0.005% 2.5 ML OPHT DROPS EACHEYE SCH (23:09)
[2019-01-07] MEDS: CARBIDOPA/LEVODOPA 25 MG/100 MG TAB PO SCH ×5 (05:09→17:33)
[2019-01-07] MEDS: ENTACAPONE 200 MG TAB PO SCH ×5 (05:09→17:34)
[2019-01-07 05:46] LABS: PLATELET COUNT 154 10^3/uL (150-400)
[2019-01-07] MEDS: oxyCODONE IR 5 MG TAB PO PRN ×3 (07:13→13:42)
[2019-01-07] MEDS: PRESERVISION AREDS2 FORMULA EYE VIT 1 EACH PO SCH ×2 (07:46→20:24)
[2019-01-07] MEDS: FERROUS SULFATE 325 MG TAB PO SCH ×3 (07:46→20:24)
[2019-01-07] MEDS: CARBIDOPA/LEVO CR 50 MG/200 MG TAB PO SCH ×2 (07:46→20:24)
[2019-01-07] MEDS: CHOLECALCIFEROL VIT D3 1,000 UNITS TAB PO SCH (07:46)
[2019-01-07] MEDS: CYANO/VITAMIN B12 1000 MCG TAB PO SCH (07:46)
[2019-01-07] MEDS: ENOXAPARIN 30 MG/0.3 ML SYR SC SCH (07:47)
[2019-01-07] MEDS: LISINOPRIL 10 MG TAB PO SCH ×2 (08:09→20:24)
[2019-01-07] MEDS: PRAMIPEXOLE 1 MG TAB PO SCH ×4 (09:17→17:33)
[2019-01-07] MEDS: PRAVASTATIN SODIUM 20 MG TAB PO SCH ×2 (09:17→20:24)
[2019-01-07] MEDS: traMADol 50 MG TAB PO PRN ×2 (11:30→22:08)
--- NOTE | 2019-01-07 13:32 | PDMN ---
Medical Necessity Medical necessity: Pt meets IP criteria per & SANGITA M-61; est los >2 mn for eval/tx of increasing back pain w/thoracic & lumbar spine stenosis, inability to walk & recurrent falls; requiring further monitoring, Neuro consult, pain management & therapies; comorbid advanced age, parkinsons; per H&P & order
--- NOTE | 2019-01-07 14:17 | HOSPPROG ---
Hospitalist Progress Note Assessment/Plan: 78 yo M with PD and recurrent recent falls presenting with increased radicular lower back pain with lumbar and thoracic stenosis. First encounter, chart reviewed. D/W NSG. # thoracic and lumbar spine stenosis: -mild at t7-t8 but with mild cord compression -severe at L3-L4 likely responsible for his presenting complaints of radicular lower back pain -consulted NSG -consider injection # gait instability: -this has been worsening over some time -patient notes that now for the last 2 weeks he is unable to walk at all and needs to use a wheelchair -2 months ago he was able to bicycle for 10 miles a day. -PT/OT # right inguinal pain: -suspect this is related to his lumbar stenosis rather than to his prior inguinal hernia which has not recurred by imaging -FU outpt # PD: -progressive, continue his op medications, -does have some emotional lability but no significant dementia # HTN: -no BP meds on his home med list -BP here has been only mildly elevated, appropriate given his age and underlying PD, -monitoring for now # HLD: -continue statin # Dispo -unclear -await [facility] recs -PT/OT Subjective: Resting, still having back pain. Feels tired. Objective: Vital Signs Temp Pulse Resp BP Pulse Ox 36.5 C 59 L 18 93/44 L 93 01/07/19 11:43 01/07/19 11:43 01/07/19 11:43 01/07/19 11:43 01/07/19 11:43 Laboratory Results 01/07/19 05:05 01/07/19 05:05 01/06/19 01/07/19 01/08/19 05:59 05:59 05:59 Intake Total 100 Output Total 300 70 Balance -200 -70 - Physical Exam Constitutional: uncomfortable, cachectic, No obese Eyes: PERRL, anicteric sclera, EOMI Ears, Nose, Mouth, Throat: moist mucous membranes, hearing normal, ears appear normal Cardiovascular: regular rate and rhythym, No JVD, No edema Respiratory: no respiratory distress, no rales or rhonchi, reduced air movement Gastrointestinal: normoactive bowel sounds, No tenderness, No ascites Skin: warm, normal color, No mottled Musculoskeletal: joint tenderness, pain with ROM, generalized weakness Neurologic: AAOx3 Psychiatric: interacting appropriately, not anxious, not encephalopathic ICD10 Worksheet Patient Problems: Problems Problem Status Onset Diarrhea Acute Acute renal failure Acute Back pain Acute
--- NOTE | 2019-01-07 15:23 | GCON ---
[f rep st] CONSULTATION CONSULTATION/HISTORY AND PHYSICAL DATE OF CONSULTATION: 01/07/2019 The patient is seen by neurosurgical service at 1400 on 01/07/2019. CHIEF COMPLAINT: Back pain with difficulty walking. HISTORY OF PRESENT ILLNESS: The patient is an 78-year-old male with a past medical history of prior lumbar surgery. He underwent an L4-5 fusion approximately 5 years ago at [facility]. The patient does have a prior past medical history as well of Parkinson's disease. He states that he has been having increasing symptoms over the last few months. This was precipitated by a fall on his bike as well as a fall hiking approximately 2 months ago. Over the course of the last 2 months, this has slowly progressively gotten worse. Currently, he denies any bowel or bladder problems. He describes only right lower extremity pain. Denies any left lower extremity pain. No numbness in his groin. No saddle numbness. He is eating and drinking fine. He is voiding fine. He describes the pain as shooting down the right leg in the lower back, and described to the admitting physician some right groin pain, but did not it tell me that his groin hurt on the right side with my evaluation today. He does have previous inguinal hernia surgery on the right side with a mesh placement. He feels generally his legs are weak related to pain. [facility], and has been not terribly happy with their care. Recently, he was given the option to see an outside surgeon in their system. He denies any other complaints or concerns. ALLERGIES: Sulfa. MEDICATIONS PRIOR TO ADMISSION: Sinemet, Comtan, ferrous sulfate, Xalatan, Zestril, naproxen, Mirapex, Zocor, Tylenol, PreserVision AREDS 2 soft gel, vitamin D3, vitamin B12, Voltaren gel, and Ultram. PAST MEDICAL HISTORY: Significant for the followin. Parkinson disease. 2. Hypertension. 3. Hyperlipidemia. 4. Iron deficiency. 5. Chronic back pain. PAST SURGICAL HISTORY: 1. Right inguinal repair x3. 2. Spine surgery x2 with most recent L4-5 fusion done at [facility]. FAMILY HISTORY: Reviewed and non pertinent. SOCIAL HISTORY: The patient is a former smoker. He rarely drinks. He lives in [facility] for the last 2-1/2 years. His daughter is in the area. He used to bike approximately 10-15 miles per day, but is no longer able to. IMMUNIZATIONS: Reported up-to-date. TRAVEL: No recent travel. REVIEW OF SYSTEMS: Complete 10-point review of systems reviewed and otherwise negative except what is stated in HPI. PHYSICAL EXAMINATION: GENERAL: This is an awake, alert, oriented male in no acute distress. MOST RECENT VITAL SIGNS: Blood pressure 93/44 with a MAP of 60 , heart rate 59, 18 respirations, 93% on room air, temperature 36.5. HEENT: Head is normocephalic, atraumatic. Pupils equal and round, reactive to light. EOMI is intact. Full visual capps by confrontation. Ears are patent. Nose is patent. NECK: Soft and supple. No midline tenderness. Full range of motion in flexion, extension, lateral bending, rotation. RESPIRATORY/CARDIAC: Deferred. ABDOMEN: Soft, nontender. No peritoneal signs. /RECTAL: Deferred. NEURO: Patient is awake, alert, oriented to name, place, location, date, time, and situation. Memory is intact to immediate, past, and current events. Speech no aphasia, dysarthria, dysphonia. Cranial nerves 2-12 grossly intact. Motor: Patient has 5/5 strength in all muscle groups of bilateral upper and lower extremities to include deltoids, biceps, triceps, brachioradialis, wrist flexion extensors, flooring grader, intrinsic fingers, iliopsoas, quadriceps, hamstring, plantar flexion, dorsiflexion, EHL testing with the exception of right EHL at 4+ out of 5. Sensation is grossly intact to light touch throughout all dermatome distributions upper and lower extremities. Negative straight leg raise. Negative REI test. Reflexes of biceps, triceps, brachioradialis, knee jerk and ankle jerk 2+ out of 4. Toes are downgoing bilaterally. Stringer's negative. Babinski negative. No evidence of clonus. MEDICAL DECISION MAKING/DIAGNOSTIC STUDIES/LABORATORY TESTS: Obtained 2018, shows a white count of 4.05 with an H and H of 11.5 and 36.2 with a platelet count of 154. Chemistry on 01/07/2019, sodium 139, potassium 4.5, chloride 109, CO2 26, BUN 19, and creatinine 0.8. Urine showed trace ketones, otherwise negative. 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 Mild early degenerative changes of the right hip. No evidence for acute fracture was noted. Deferred to Internal Medicine for any further recommendations. Lumbar spine x-rays obtained shows postsurgical changes of a fusion L4-5. As above, mild anterolisthesis of L3 and L4. There are multilevel degenerative disk changes and a levoscoliotic curvature was noted as well. Thoracic spine MRI dated 01/06/2019, shows multilevel mild to moderate degenerative disk disease and dorsal disk osteophyte complexes resulting in mild central canal stenosis at T7-8, T9-10. There is thoracic kyphosis and mild multiple level compression fractures benign-appearing without acute fracture or destructive osseous lesions noted. No cord edema or myelomalacia. MRI of the lumbar spine obtained 01/06/2019, at 1728 shows L3-4 severe central canal stenosis secondary to severe bilateral facet arthropathy. There is a grade 1 anterolisthesis. There are severe degenerative disk changes. There is also severe bilateral neuroforaminal stenosis with the right side much worse than the left. L4-5 shows postsurgical changes without any central canal stenosis. IMPRESSION: 1. Lumbar stenosis with right lower extremity radiculopathy with MRI that shows severe stenosis, right worse in the left at L3-4 above a prior fusion at L4-5 that occurred 4 to 5 years ago. 2. History of falls. PLAN DISCUSSION: The patient is an 78-year-old male who was admitted to the Internal Medicine service. He has had prior lumbar surgery, most recently with an L4-5 fusion with a physician at [facility] per his account. Over the last 2 months, he has had horrible lower back pain and pain down the right leg. The pain is all in the right leg, none on the left side. He has no saddle numbness or numbness in his groin. He is voiding fine. An MRI of the lumbar spine showed severe stenosis at L3-4 above his prior fusion. The right side is worse than left. He does have some trace weakness of his right EHL at 4 + out of 5. RECOMMENDATIONS: Initially here, we will try to organize an epidural steroid injection on the right side at L3-4. An order was placed with interventional radiologist to speak with him about this treatment plan. He did inquire whether surgery would be warranted. Dr. Musa will discuss this with him further. We talked about worsening symptoms, when to call. The patient understands and agrees. He will notify nursing staff of any worsening pain, numbness, tingling, weakness, loss of bowel or bladder control, problems gait or balance. /[id number]/[facility] STAFF ADDENDUM: I personally interviewed and examined the patient and viewed pertinent imaging on the day of consultation. I agree with documentation provided by Travis De La Cruz PA-C. He has had a significant decline in his activities due to low back and right leg pain. His exam is notable only for mild weakness of right DF and EHL. Imaging demonstrates degenerative scoliosis, spondylolisthesis, and spinal canal stenosis at L3-4 with severe right neural foraminal narrowing. The CT of the abd/pelvis also suggests that he there is pseudarthrosis at L4-5. His description is consistent with a right L3 radiculopathy, and imaging has correlating findings. I agree with PT and IVY, although I suspect that surgical intervention will ultimately be indicated. I discussed the possibility of a TLIF at L3-4 with extension of the posterior fusion to that level. I will request records of his prior operation from [facility] as removal of the old hardware will be a part of that surgery. Neurosurgery will follow. Cosmo Musa M.D. [facility] CENTERAlicia
[2019-01-07] MEDS ORDERED: IOPAMIDOL (ISOVUE-M 300) 15 ML VIAL ONE (16:06)
[2019-01-07] MEDS ORDERED: TRIAMCINOLONE ACETONIDE 200 MG/5 ML MDV IM ONE (16:06)
--- NOTE | 2019-01-07 17:22 | ASMTCMCOM ---
CM Note CM Note Notes: Met with Vishal who lives at [facility] for the past 2.5yrs and Chart reviewed. Pt is a 78yr old admitted with Back and leg pain. Pt has had recurrent falls, Hx Parkinson, HTN, & Chronic back. PT & OT recommend Home care. Daughter lives in [place] 20min from Pt. CM available for needs. PLAN: TBD Date Signed: 01/07/2019 05:21 PM Electronically Signed By:Mary Ann Cervantes
[2019-01-07] MEDS: LATANOPROST 0.005% 2.5 ML OPHT DROPS EACHEYE SCH (20:30)
[2019-01-08] MEDS: traMADol 50 MG TAB PO PRN ×2 (03:54→11:07)
[2019-01-08] MEDS: ENTACAPONE 200 MG TAB PO SCH ×5 (06:40→17:13)
[2019-01-08] MEDS: CARBIDOPA/LEVODOPA 25 MG/100 MG TAB PO SCH ×5 (06:40→17:13)
[2019-01-08] MEDS: CARBIDOPA/LEVO CR 50 MG/200 MG TAB PO SCH ×2 (06:48→22:04)
--- NOTE | 2019-01-08 07:29 | NEUSURGPN ---
Assessment/Plan: Assessment: 78 yo male that is admitted to with back and leg pain. Pt with all RLE pain and LBP. No LLE pain Plan: -MRI of the L spine shows severe stenosis above his fusion at L3/4. He has a prior L4/5 fusion that is questionable if this has fused at that level -pt had injection done yesterday that gave him about "30%-50%" improvement in his symptoms -pt agrees with us that surgery is likely needed -Dr Musa saw pt yesterday and is about to see him as well for discussion about surgery/treatment plan this am -we will need to get the op note from his surgery at [facility] from about 5 years ago -PT/OT-CPM -pt more comfortable today -warning signs given -call with any questions or concerns Subjective: Awake and alert. NAD. Eating/drinking and voiding. No f/c/n/v/d. No pathak/neck/ chest/abd or gu complaints. Objective: AAO x 3, PERRLA/EOMI no droop CN 2-12 grossly intact +lt touch 5/5 BUE/BLE = except right EHL at 5-/5 Neuro Check Frequency: per routine Urinary Catheter in Place: No - Physician Discussed Patient with Dr.: Other (Lencho) Patient Seen by Dr.: Other (Lencho) Neurosurgery Physical Exam - Vitals, I&O, Labs I and O 01/07/19 01/08/19 01/09/19 05:59 05:59 05:59 Intake Total 100 Output Total 300 370 150 Balance -200 -370 -150 Weight 63.957 kg Intake: Oral (ml) 100 Output: Urine (ml) 300 370 150 Toilet 300 150 Urinal 300 70 Other: Intake Quantity Yes Sufficient Number of Voids Toilet 1 Vital Signs Temp Pulse Resp BP Pulse Ox 36.7 C 60 16 137/67 H 96 01/08/19 03:52 01/08/19 03:52 01/08/19 03:52 01/08/19 03:52 01/08/19 03:52 Laboratory Results 01/07/19 05:05 01/07/19 05:05 ICD10 Worksheet Patient Problems: Problems Problem Status Onset Back pain Acute Acute renal failure Acute Diarrhea Acute
--- NOTE | 2019-01-08 08:48 | HOSPPROG ---
Hospitalist Progress Note Assessment/Plan: 78 yo M with PD and recurrent recent falls presenting with increased radicular lower back pain with lumbar and thoracic stenosis. First encounter, chart reviewed. # thoracic and lumbar spine stenosis -MRI of the L spine shows severe stenosis above his fusion at L3/4 -s/p steroid injection that gave him some improvement -neurosurgery discussed w him about surgery (this is scheduled for tomorrow 01/09 ) # gait instability -was very independent and now worsening -PT/OT # right inguinal pain -no c/o this today -suspect this is related to his lumbar stenosis rather than to his prior inguinal hernia which has not recurred by imaging -FU outpt # PD -cont home regimen # HTN: -BP stable this morning # HLD -statin #plan: surgery tomorrow, will make him NPO tonight Subjective: Vishal said his back continues to hurt, was riding his bike daily, hiking frequently. Really wants to get back to this baseline. Objective: Vital Signs Temp Pulse Resp BP Pulse Ox 36.6 C 68 16 129/64 H 94 01/08/19 07:22 01/08/19 07:22 01/08/19 07:22 01/08/19 07:22 01/08/19 07:22 Laboratory Results 01/07/19 05:05 01/07/19 05:05 01/07/19 01/08/19 01/09/19 05:59 05:59 05:59 Intake Total 100 Output Total 300 370 150 Balance -200 -370 -150 - Physical Exam Constitutional: uncomfortable, other (alender) Eyes: PERRL Ears, Nose, Mouth, Throat: hearing normal Cardiovascular: regular rate and rhythym Respiratory: no respiratory distress Gastrointestinal: normoactive bowel sounds Skin: warm Musculoskeletal: generalized weakness, other (generalized upper extremity tremors) Neurologic: AAOx3 Psychiatric: interacting appropriately ICD10 Worksheet Patient Problems: Problems Problem Status Onset Back pain Acute Acute renal failure Acute Diarrhea Acute
[2019-01-08] MEDS: CHOLECALCIFEROL VIT D3 1,000 UNITS TAB PO SCH (09:38)
[2019-01-08] MEDS: CYANO/VITAMIN B12 1000 MCG TAB PO SCH (09:38)
[2019-01-08] MEDS: PRESERVISION AREDS2 FORMULA EYE VIT 1 EACH PO SCH ×2 (09:38→22:03)
[2019-01-08] MEDS: PRAMIPEXOLE 1 MG TAB PO SCH ×4 (09:38→17:13)
[2019-01-08] MEDS: FERROUS SULFATE 325 MG TAB PO SCH ×3 (09:38→22:03)
[2019-01-08] MEDS: LISINOPRIL 10 MG TAB PO SCH ×2 (09:39→22:03)
[2019-01-08] MEDS: ENOXAPARIN 30 MG/0.3 ML SYR SC SCH (09:42)
[2019-01-08 11:53] LABS: PROTIME(PATIENT) 12.8 SEC (12.0-15.0)
--- NOTE | 2019-01-08 14:55 | ASMTCMCOM ---
CM Note CM Note Notes: Pt to have back surgery tomorrow, PT/OT will continue to assess post op. DC Plan: TBD Date Signed: 01/08/2019 02:54 PM Electronically Signed By:Amy Sanchez RN
[2019-01-08] MEDS: PRAVASTATIN SODIUM 20 MG TAB PO SCH (22:04)
[2019-01-08] MEDS: LATANOPROST 0.005% 2.5 ML OPHT DROPS EACHEYE SCH (22:06)
[2019-01-09] MEDS: ENTACAPONE 200 MG TAB PO SCH ×4 (05:16→22:21)
[2019-01-09] MEDS: CARBIDOPA/LEVO CR 50 MG/200 MG TAB PO SCH ×2 (05:16→22:40)
[2019-01-09] MEDS: CARBIDOPA/LEVODOPA 25 MG/100 MG TAB PO SCH ×4 (05:16→22:21)
--- NOTE | 2019-01-09 08:02 | NEUSURGPN ---
Assessment/Plan: Assessment: 78 yo male that is admitted to with back and leg pain. Pt with all RLE pain and LBP. No LLE pain Plan: -MRI of the L spine shows severe stenosis above his fusion at L3/4. He has a prior L4/5 fusion that is questionable if this has fused at that level -pt had injection done that gave him about "30%-50%" improvement in his symptoms. Pt still with severe discomfort -plan for adjacent segment fusion today with Dr Musa -pt agrees with us that surgery is needed -pt seen daily with Dr Musa -Dr Musa saw pt yesterday as well and dw him surgery. Pt agrees and wants to proceed -consents reviewed with the patient and he understands the risks and need for surgery, he wants to proceed -we will need to get the op note from his surgery at [facility] from about 5 years ago -request sent to them and awaiting record -PT/OT-CPM -warning signs given -call with any questions or concerns Subjective: Awake and alert. NAD. NPO. No pathak/neck/chest/abd or gu complaints. No f/c/n/v /d. Objective: AAO x 3, PERRLA/EOMI no droop CN 2-12 grossly intact +lt touch 5/5 BUE/BLE = except right EHL at 5-/5 Neuro Check Frequency: per routine Urinary Catheter in Place: No - Physician Discussed Patient with Dr.: Other (Lencho) Patient Seen by .: Bret (Lencho) Neurosurgery Physical Exam - Vitals, I&O, Labs I and O 01/08/19 01/09/19 01/10/19 05:59 05:59 05:59 Output Total 370 805 Balance -370 -805 Output: Urine (ml) 370 805 Toilet 300 300 Urinal 70 505 Other: Intake Quantity Yes Yes Sufficient Number of Voids Toilet 1 1 Urinal 1 Vital Signs Temp Pulse Resp BP Pulse Ox 36.4 C 59 L 16 124/61 H 95 01/08/19 22:32 01/08/19 22:32 01/08/19 22:32 01/08/19 22:32 01/08/19 22:32 Laboratory Results 01/07/19 05:05 01/07/19 05:05 ICD10 Worksheet Patient Problems: Problems Problem Status Onset Back pain Acute Acute renal failure Acute Diarrhea Acute
[2019-01-09] MEDS: FERROUS SULFATE 325 MG TAB PO SCH ×3 (08:59→22:40)
[2019-01-09] MEDS: CHOLECALCIFEROL VIT D3 1,000 UNITS TAB PO SCH (08:59)
[2019-01-09] MEDS: CYANO/VITAMIN B12 1000 MCG TAB PO SCH (08:59)
[2019-01-09] MEDS: LISINOPRIL 10 MG TAB PO SCH ×2 (09:01→22:46)
[2019-01-09] MEDS: PRESERVISION AREDS2 FORMULA EYE VIT 1 EACH PO SCH ×2 (09:02→22:40)
[2019-01-09] MEDS: PRAMIPEXOLE 1 MG TAB PO SCH ×3 (09:51→22:22)
[2019-01-09] MEDS: oxyCODONE IR 5 MG TAB PO PRN (10:47)
[2019-01-09] MEDS ORDERED: BUPIVACAINE 0.25% 30 ML SDV ONE (11:11)
[2019-01-09] MEDS ORDERED: SURGIFLO MATRIX KIT WITH THROMBIN 8 ML TP ONE (11:11)
[2019-01-09] MEDS ORDERED: THROMBIN (BOVINE) 5,000 UNIT VIAL TP ONE (11:11)
[2019-01-09] MEDS ORDERED: CHLORHEXIDINE GLUC HIBICLENS 118 ML BTL TP ONE (11:11)
[2019-01-09] MEDS ORDERED: EPINEPHrine 1 MG/ML INJ ONE (11:12)
[2019-01-09] MEDS ORDERED: BACITRACIN 50,000 UNITS/10 ML SYR IRR ONE (11:12)
[2019-01-09] MEDS ORDERED: LR 1,000 ML IV ONE (11:28)
[2019-01-09] MEDS ORDERED: ROCURONIUM 100 MG/10 ML VIAL ONE ×2 (12:06→15:00)
[2019-01-09] MEDS ORDERED: PROPOFOL 200 MG/20 ML VIAL ONE (12:06)
[2019-01-09] MEDS ORDERED: HYDROmorphONE/DILAUDID 2 MG/ML INJ ONE (12:07)
[2019-01-09] MEDS ORDERED: oxyCODONE IR 5 MG TAB PO PRN (12:13)
[2019-01-09] MEDS ORDERED: ALBUTEROL 3 ML DEYVIAL IH PRN (12:13)
[2019-01-09] MEDS ORDERED: ONDANSETRON 4 MG/2 ML VIAL IVP PRN (12:13)
[2019-01-09] MEDS ORDERED: NALOXONE HCL 0.4 MG/ML INJ IVP PRN (12:13)
[2019-01-09] MEDS ORDERED: HYDROmorphONE/DILAUDID 2 MG/ML INJ IVP PRN (12:13)
[2019-01-09] MEDS ORDERED: LR 500 ML IV PRN (12:13)
--- NOTE | 2019-01-09 12:15 | PDANEPAE ---
ANE History of Present Illness L3-4 TLIF ANE Past Medical History - Cardiovascular History Hx Hypertension: Yes - Pulmonary History Hx Oxygen in Use at Home: No Hx Sleep Apnea: Yes Sleep Apnea Screening Result - Last Documented: Positive - Endocrine History Hx Diabetes: No - Chronic Pain History Chronic Pain: Yes ANE Review of Systems Review of Systems: ANE Patient History - Allergies Allergies/Adverse Reactions: Sulfa (Sulfonamide Antibiotics) Allergy (Verified 01/06/19 14:38) whole body rash - Home Medications Home Medications: Carbidopa/Levo Cr 50/200Mg [SINEMET CR 50/200 MG (*)] 2 tab PO BID 11/05/18 [ Last Taken 11/05/18 09:00] Carbidopa/Levodopa 25/100Mg [Sinemet 25/100 MG (*)] 2 tab PO 06,10,12,1430,18 [Last Taken 11/05/18 14:30] Entacapone [Comtan] 200 mg PO 06,10,12,1430,18 11/05/18 [Last Taken 11/05/18 14: 30] Ferrous Sulfate [Ferrous Sulf 325 MG (*)] 325 mg PO TID 11/05/18 [Last Taken Unknown] Latanoprost 0.005% [Xalatan 0.005% (*)] 1 drops EACHEYE HS 11/05/18 [Last Taken 11/04/18] Lisinopril [Zestril 10 mg (*)] 15 mg PO BID 11/05/18 [Last Taken 11/04/18] Naproxen [Naprosyn] 500 mg PO BID 11/05/18 [Last Taken 11/05/18 09:00] Pramipexole Di-HCl [Mirapex 1 mg (*)] 0.5 mg PO 10,12,1430,18 11/05/18 [Last Taken 11/05/18 14:30] Simvastatin [Zocor] 10 mg PO HS 11/05/18 [Last Taken 11/04/18] Acetaminophen [Tylenol 8 Hour] 650 mg PO Q8HRS PRN 01/06/19 [Last Taken Unknown] C/E/Zn/Cu/OM3/DHA/EPA/LUT/ZEAX [Preservision Areds 2 Softgel] 1 each PO BID [Last Taken Unknown] Cholecalciferol Vit D3 [Vitamin D3 (*)] 1,000 units PO DAILY 01/06/19 [Last Taken Unknown] Cyanocobalamin [Vitamin B12 (*)] 1,000 mcg PO DAILY 01/06/19 [Last Taken Unknown ] Diclofenac Sodium 1% [Voltaren Gel (*)] 2 gm TP QID PRN 01/06/19 [Last Taken Unknown] traMADol [Ultram 50 mg (*)] 50 mg PO Q4 PRN 01/06/19 [Last Taken Unknown] - NPO status NPO Since - Liquids (Date): 01/08/19 NPO Since - Liquids (Time): 19:00 NPO Since - Solids (Date): 01/08/19 NPO Since - Solids (Time): 19:00 - Smoking Hx Smoking Status: Former smoker - Alcohol Use Alcohol Use: Rarely ANE Labs/Vital Signs - Labs Result Diagrams: 01/07/19 05:05 01/07/19 05:05 - Vital Signs Blood Pressure: 145/65 Heart Rate: 69 Respiratory Rate: 23 O2 Sat (%): 94 Height: 170.18 cm Weight: 63.957 kg ANE Physical Exam - Airway Neck exam: FROM Mallampati Score: Class 2 Mouth exam: normal dental/mouth exam - Pulmonary Pulmonary: clear to auscultation - Cardiovascular Cardiovascular: regular rate and rhythym - ASA Status ASA Status: III ANE Anesthesia Plan Anesthesia Plan: general endotracheal anesthesia
[2019-01-09] MEDS ORDERED: ceFAZolin 2 GM/DEXTROSE 100 ML IV ONE (13:00)
[2019-01-09] MEDS ORDERED: ceFAZolin 1 GM VIAL ONE ×2 (16:25)
[2019-01-09] MEDS ORDERED: ONDANSETRON 4 MG/2 ML VIAL ONE (16:31)
[2019-01-09] MEDS ORDERED: DEXAMETHASONE 4 MG/ML VIAL ONE (16:31)
--- NOTE | 2019-01-09 16:53 | HOSPPROG ---
Hospitalist Progress Note Assessment/Plan: 78 yo M with PD and recurrent recent falls presenting with increased radicular lower back pain with lumbar and thoracic stenosis. # thoracic and lumbar spine stenosis -MRI of the L spine shows severe stenosis above his fusion at L3/4 -s/p steroid injection that gave him some improvement -surgery today, L3-L5 fusion w TLIF # gait instability -was very independent and now worsening -PT/OT # right inguinal pain -suspect this is related to his lumbar stenosis rather than to his prior inguinal hernia which has not recurred by imaging -FU outpt # PD -cont home regimen # HTN: -BP bit elevated this morning # HLD -statin #plan:Patient in OR, did not see; will see him in the morning. Objective: Vital Signs Temp Pulse Resp BP Pulse Ox 36.4 C 69 23 H 145/65 H 94 01/09/19 11:48 01/09/19 12:15 01/09/19 12:15 01/09/19 12:15 01/09/19 12:15 Laboratory Results 01/07/19 05:05 01/07/19 05:05 01/08/19 01/09/19 01/10/19 05:59 05:59 05:59 Output Total 370 805 Balance -370 -805 PT 12.8 SEC (12.0-15.0) 01/08/19 11:15 INR 1.00 (0.83-1.16) 01/08/19 11:15 ICD10 Worksheet Patient Problems: Problems Problem Status Onset Back pain Acute Acute renal failure Acute Diarrhea Acute
[2019-01-09] MEDS ORDERED: fentaNYL 100 MCG/2 ML INJ ONE ×2 (17:55→18:43)
--- NOTE | 2019-01-09 18:58 | POSTANESTH ---
Post Anesthetic Evaluation Cardiovascular Status: Normal, Stable Respiratory Status: Normal, Stable Level of Consciousness/Mental Status: Can Participate in Eval, Moderately Sleepy Pain Control: Adequate, Prn Tx Ordered Nausea/Vomiting Control: Adequate, Prn Tx Ordered Complications Possibly Related to Anesthesia: None Noted
--- NOTE | 2019-01-09 19:16 | POSTOPPROG ---
Post Op Note Date of Operation: 01/09/19 Surgeon: Cosmo Musa Security Services Manager: None Anesthesiologist: Will Flores Anesthesia: GET(General Endotracheal), Local (Specify) Pre-op Diagnosis: L3-4 spinal stenosis, spondylolisthesis, and scoliosis with radiculopathy Post-op Diagnosis: same Indication: Severe right leg pain, limited activities Procedure: Removal hardware L4-5, TLIF L3-4, revision hardware & posterior fusion L3-5 Findings: Good hardware and graft placements; adequate decompression Inf/Abcess present in the surg proc area at time of surgery?: No EBL: 100-500 Complications: Inadvertent durotomy Bowel Protocol: N/A Clean Closure Performed: N/A Drains: Billy Wray Specimen(s): None SOAP Progress Note Assessment/Plan: Assessment: Plan: He is doing well s/p L3-4 TLIF with revision posterior L4-5 fusion. - Readmit to med/surg evans with q4 hourly VS, CMS, and neuro check - Subfascial CECILIA to bulb suction - ADAT to regular - Bedrest with hob flat overnight - Will order LSO brace to be worn when oob - AM labs - Buff cap IVF once PO intake is adequate - Upright L-spine X-rays once able - Prophylactic IV Ancef x24 hours - Pain management - PT/OT eval and tx 01/09/19 19:49 Subjective: No pain currently. Objective: Vital Signs Temp Pulse Resp BP Pulse Ox 37.2 C 69 13 123/57 H 100 01/09/19 18:53 01/09/19 12:15 01/09/19 19:01 01/09/19 19:01 01/09/19 19:01 Laboratory Results 01/07/19 05:05 01/07/19 05:05 01/08/19 01/09/19 01/10/19 05:59 05:59 05:59 Output Total 370 805 Balance -370 -805 PT 12.8 SEC (12.0-15.0) 01/08/19 11:15 INR 1.00 (0.83-1.16) 01/08/19 11:15 I examined him in the PACU. He is drowsy, but awakens to voice and opens eyes. PERRL. Hypophonic speech, follows commands Strength 5/5 B PF, EHL, DF, KE, HF SILT throughout BLE CECILIA with sanguinous output
[2019-01-09] MEDS ORDERED: D5W 1/2 NS W/ 20 KCl/L 1,000 ML IV SCH (19:45)
[2019-01-09] MEDS: PRAVASTATIN SODIUM 20 MG TAB PO SCH (22:41)
[2019-01-09] MEDS: LATANOPROST 0.005% 2.5 ML OPHT DROPS EACHEYE SCH (22:59)
[2019-01-10] MEDS: LATANOPROST 0.005% 2.5 ML OPHT DROPS EACHEYE SCH ×2 (00:14→21:18)
[2019-01-10] MEDS: traMADol 50 MG TAB PO PRN (02:01)
[2019-01-10] MEDS: CARBIDOPA/LEVODOPA 25 MG/100 MG TAB PO SCH ×5 (05:04→18:05)
[2019-01-10] MEDS: ENTACAPONE 200 MG TAB PO SCH ×5 (05:04→18:05)
--- NOTE | 2019-01-10 08:23 | HOSPPROG ---
Hospitalist Progress Note Assessment/Plan: 78 yo M with PD and recurrent recent falls presenting with increased radicular lower back pain with lumbar and thoracic stenosis. # thoracic and lumbar spine stenosis -MRI of the L spine shows severe stenosis above his fusion at L3/4 -s/p steroid injection that gave him some improvement -s/p L3-L5 fusion w TLIF (had an intraop durotomy, lied flat through the night) #headache this morning -if this continues, will need to lie flat again due to concerns of CSF leak -also could be due to low bp, will give a fluid bolus now # gait instability -was very independent and now worsening -PT/OT # right inguinal pain -resolved # PD -cont home regimen # HTN: -BP low this morning -place parameters as to when to hold # HLD -statin #plan: fluid bolus now, check labs in a.m., if headache worsens, will ask RN to notify Subjective: Vishal is c/o a headache, not having significant pain. Objective: Vital Signs Temp Pulse Resp BP Pulse Ox 36.9 C 74 16 82/57 L 97 01/10/19 08:00 01/10/19 08:00 01/10/19 08:00 01/10/19 08:00 01/10/19 08:00 Laboratory Results 01/10/19 04:28 01/10/19 04:28 01/09/19 01/10/19 01/11/19 05:59 05:59 05:59 Intake Total 2150 Output Total 805 1005 Balance -805 1145 PT 12.8 SEC (12.0-15.0) 01/08/19 11:15 INR 1.00 (0.83-1.16) 01/08/19 11:15 - Physical Exam Constitutional: no apparent distress Eyes: PERRL Ears, Nose, Mouth, Throat: hearing normal Cardiovascular: regular rate and rhythym, systolic murmur Respiratory: no respiratory distress Genitourinary: salas in urethra Skin: warm Neurologic: AAOx3 Psychiatric: interacting appropriately ICD10 Worksheet Patient Problems: Problems Problem Status Onset Back pain Acute Acute renal failure Acute Diarrhea Acute
--- NOTE | 2019-01-10 08:27 | SOAPPROG ---
SOAP Progress Note Assessment/Plan: Assessment: 78 male POD #1 sp/ L3/4 TLIF and redo L4/5 fusion. Intraop durotomy and was flat overnight Pain well controlled this AM, doing well. Plan: Start HOB up this AM with 30 degrees x 1 hr, then 45 degrees for 1 hr. Then OOB with assist in LSO. I will put order in for LSO. HAY salas if tolerating being up without positional CAMPUZANO Medicine following for Parkinsons and other med issues. 01/10/19 08:23 01/10/19 08:29 Subjective: LYing flat. Pain is well controlled. Denies new numbness, tingling or weakness. Objective: Vital Signs Temp Pulse Resp BP Pulse Ox 36.9 C 74 16 82/57 L 97 01/10/19 08:00 01/10/19 08:00 01/10/19 08:00 01/10/19 08:00 01/10/19 08:00 Laboratory Results 01/10/19 04:28 01/10/19 04:28 01/09/19 01/10/19 01/11/19 05:59 05:59 05:59 Intake Total 2150 Output Total 805 1005 Balance -805 1145 PT 12.8 SEC (12.0-15.0) 01/08/19 11:15 INR 1.00 (0.83-1.16) 01/08/19 11:15 Neuro: COOLEY, sens +LT follows commands A+Ox4 Dressing: Dry. CECILIA: 80 ml ICD10 Worksheet Patient Problems: Problems Problem Status Onset Back pain Acute Acute renal failure Acute Diarrhea Acute
[2019-01-10] MEDS: oxyCODONE IR 5 MG TAB PO PRN ×2 (09:11→12:51)
[2019-01-10] MEDS: CYANO/VITAMIN B12 1000 MCG TAB PO SCH (09:12)
[2019-01-10] MEDS: CHOLECALCIFEROL VIT D3 1,000 UNITS TAB PO SCH (09:12)
[2019-01-10] MEDS: CARBIDOPA/LEVO CR 50 MG/200 MG TAB PO SCH ×2 (09:12→21:17)
[2019-01-10] MEDS: FERROUS SULFATE 325 MG TAB PO SCH ×3 (09:12→21:17)
[2019-01-10] MEDS: LISINOPRIL 10 MG TAB PO SCH ×2 (09:22→21:19)
[2019-01-10] MEDS: PRESERVISION AREDS2 FORMULA EYE VIT 1 EACH PO SCH ×2 (09:22→21:16)
[2019-01-10] MEDS ORDERED: NS 250 ML IV ONE (10:02)
[2019-01-10] MEDS ORDERED: NS 1,000 ML IV SCH (10:45)
[2019-01-10] MEDS: PRAMIPEXOLE 1 MG TAB PO SCH ×4 (11:00→16:48)
--- NOTE | 2019-01-10 11:36 | ASMTCMCOM ---
CM Note CM Note Notes: Pt had back surgery yesterday, PT/OT to eval when pt can tolerate being up. DC Plan: TBD Date Signed: 01/10/2019 11:35 AM Electronically Signed By:Amy Sanchez RN
[2019-01-10] MEDS ORDERED: BISACODYL 10 MG SUPP PR PRN (16:25)
[2019-01-10] MEDS ORDERED: MAGNESIUM HYDROXIDE 30 ML UDCUP PO PRN (16:25)
[2019-01-10] MEDS ORDERED: LACTULOSE 20 GM/30 ML UDCUP PO PRN (16:25)
[2019-01-10] MEDS: POLYETHYLENE GLYCOL 3350 17 GM PKT PO SCH (18:05)
[2019-01-10] MEDS: PRAVASTATIN SODIUM 20 MG TAB PO SCH (21:17)
[2019-01-10] MEDS: SENNOSIDES/DOCUSATE SODIUM TAB PO SCH (21:17)
[2019-01-11 05:11] LABS: PLATELET COUNT 143 10^3/uL (150-400)
[2019-01-11] MEDS: ENTACAPONE 200 MG TAB PO SCH ×5 (05:14→18:16)
[2019-01-11] MEDS: CARBIDOPA/LEVODOPA 25 MG/100 MG TAB PO SCH ×5 (05:18→18:16)
[2019-01-11] MEDS: POLYETHYLENE GLYCOL 3350 17 GM PKT PO SCH ×2 (09:27→09:31)
[2019-01-11] MEDS: LISINOPRIL 10 MG TAB PO SCH ×2 (09:28→20:57)
[2019-01-11] MEDS: SENNOSIDES/DOCUSATE SODIUM TAB PO SCH ×2 (09:29→22:21)
[2019-01-11] MEDS: CHOLECALCIFEROL VIT D3 1,000 UNITS TAB PO SCH (09:29)
[2019-01-11] MEDS: CARBIDOPA/LEVO CR 50 MG/200 MG TAB PO SCH ×2 (09:29→20:55)
[2019-01-11] MEDS: PRESERVISION AREDS2 FORMULA EYE VIT 1 EACH PO SCH ×2 (09:29→20:55)
[2019-01-11] MEDS: FERROUS SULFATE 325 MG TAB PO SCH ×3 (09:29→20:55)
[2019-01-11] MEDS: PRAMIPEXOLE 1 MG TAB PO SCH ×5 (09:30→18:16)
[2019-01-11] MEDS: CYANO/VITAMIN B12 1000 MCG TAB PO SCH (09:30)
--- NOTE | 2019-01-11 10:41 | NEUSURGPN ---
Date of Surgery: 01/09/19 Post Op Day: 2 Assessment/Plan: Assessment: 78 yo male that is POD #2 s/p L3/4 TLIF and redo L4/5 fusion with PSF L3-L5 Plan: -Intraop durotomy and was flat overnight -Pain well controlled this AM, doing well -ambulating well in hallway -PT/OT-CPM -OOB with assist in LSO-tolerating well -eating/drinking and voiding -LSO-no skin issues -voiding-moved bowels -plan for dc to rehab but bed is pending -plan for removal of CECILIA in am -IM following for Parkinson's and other med issues-appreciate their car and involvement Subjective: Awake and alert. NAD. Eating/drinking and voiding. No f/c/n/v/d. No pathak/neck/ chest/abd or gu complaints. Objective: AAO x 3, PERRLA/EOMI no droop CN 2-12 grossly intact COOLEY, sens +LT follows commands Dressing: Dry. CECILIA: 75 ml Neuro Check Frequency: per routine Urinary Catheter in Place: No - Physician Discussed Patient with Dr.: Other (Freeman) Neurosurgery Physical Exam - Vitals, I&O, Labs I and O 01/10/19 01/11/19 01/12/19 05:59 05:59 05:59 Intake Total 2150 1000 Output Total 1005 1175 250 Balance 1145 -175 -250 Weight 63.957 kg Intake: Oral (ml) 200 IV Intake (ml) 1700 IV Infused (ml) 250 1000 D5W 1/2 NS W/ 20 KCl/L 1, 195 000 ml @ 50 mls/hr IV CONT FERNANDO Rx#:[id number] Ns 1,000 ml @ 100 mls/hr 1000 IV CONT FERNANDO Rx#: [id number] ceFAZolin 1 GM/DEXTROSE 55 50 ml @ 200 mls/hr IV Q8H FERNANDO Rx#:[id number] Output: Urine (ml) 925 1100 250 Catheter 925 350 Toilet 250 Urinal 500 250 CECILIA Drain Output (ml) 80 75 Back Billy Wray 80 75 Other: Number of Voids Catheter 1 Urinal 1 Vital Signs Temp Pulse Resp BP Pulse Ox 36.6 C 78 16 150/84 H 97 01/11/19 07:36 01/11/19 07:36 01/11/19 07:36 01/11/19 09:28 01/11/19 07:36 Laboratory Results 01/11/19 04:44 01/11/19 04:44 ICD10 Worksheet Patient Problems: Problems Problem Status Onset Back pain Acute Acute renal failure Acute Diarrhea Acute
--- NOTE | 2019-01-11 13:23 | HOSPPROG ---
Hospitalist Progress Note Assessment/Plan: 78 yo M with PD and recurrent recent falls presenting with increased radicular lower back pain with lumbar and thoracic stenosis. # thoracic and lumbar spine stenosis -MRI of the L spine shows severe stenosis above his fusion at L3/4 -s/p steroid injection that gave him some improvement -s/p L3-L5 fusion w TLIF (had an intraop durotomy, resolved) -back pain is much improved, appreciate Dr Musa #headache this morning -none further # gait instability -was very independent -PT/OT # right inguinal pain -resolved # PD -cont home regimen # HTN: -stable # HLD -statin #plan: IP rehab ordered, think Vishal would be a great candidate with his underlying Parkinson's and back surgery. He is usually a very active man and rides his bicycle. Subjective: Vishal has some pain from the incision but said the pain he had before is gone. Objective: Vital Signs Temp Pulse Resp BP Pulse Ox 36.7 C 67 16 111/40 L 96 01/11/19 12:00 01/11/19 12:00 01/11/19 12:00 01/11/19 12:00 01/11/19 12:00 Laboratory Results 01/11/19 04:44 01/11/19 04:44 01/10/19 01/11/19 01/12/19 05:59 05:59 05:59 Intake Total 2150 1000 Output Total 1005 1175 250 Balance 1145 -175 -250 PT 12.8 SEC (12.0-15.0) 01/08/19 11:15 INR 1.00 (0.83-1.16) 01/08/19 11:15 - Physical Exam Constitutional: other (slender) Eyes: PERRL Ears, Nose, Mouth, Throat: other (hoarse soft spoken voice) Cardiovascular: regular rate and rhythym Respiratory: no respiratory distress Skin: warm, other (yair drain in by low back area, bloody serous drainage) Musculoskeletal: generalized weakness Neurologic: AAOx3 Psychiatric: interacting appropriately ICD10 Worksheet Patient Problems: Problems Problem Status Onset Back pain Acute Acute renal failure Acute Diarrhea Acute
--- NOTE | 2019-01-11 14:32 | ASMTCMCOM ---
CM Note CM Note Notes: Post-op PT/OT evals suggest that patient is an "excellent" candidate for acute inpatient rehab. A consult was placed yesterday afternoon. I spoke with patients daughter Darya who says that patient is quite active and rides his bike a lot. She thinks he will be motivated to go to [facility]. We will follow up with [facility] Saturday 01/13. If for some reason IPR does not work out, Darya would like a referral to [facility]. She will be out of town 01/15 - 01/27. Case Management will follow. Date Signed: 01/11/2019 02:31 PM Electronically Signed By:Mylene Montiel RN
[2019-01-11] MEDS: PRAVASTATIN SODIUM 20 MG TAB PO SCH (20:55)
[2019-01-11] MEDS: LATANOPROST 0.005% 2.5 ML OPHT DROPS EACHEYE SCH (22:07)
[2019-01-12] MEDS: ENTACAPONE 200 MG TAB PO SCH ×4 (05:54→16:11)
[2019-01-12] MEDS: CARBIDOPA/LEVODOPA 25 MG/100 MG TAB PO SCH ×4 (05:54→16:11)
--- NOTE | 2019-01-12 08:19 | HOSPPROG ---
Hospitalist Progress Note Assessment/Plan: 78 yo M with PD and recurrent recent falls presenting with increased radicular lower back pain with lumbar and thoracic stenosis. # thoracic and lumbar spine stenosis -MRI of the L spine shows severe stenosis above his fusion at L3/4 -s/p steroid injection that gave him some improvement -s/p L3-L5 fusion w TLIF (had an intraop durotomy, resolved) -back pain is much improved, appreciate Dr Musa #headache this morning -none further # gait instability -was very independent -PT/OT # right inguinal pain -resolved # PD -cont home regimen # HTN: -stable # HLD -statin #dvt prophylaxis; LMWH added, has had athrombic pumps, ambulating frequently #plan: IP rehab ordered, think Vishal would be a great candidate with his underlying Parkinson's and back surgery. He is usually a very active man and rides his bicycle. He would like to go home because his friend is getting , but realizes he will have difficulty w making his own meals, getting oob independently. Reviewed care w CM. Lumbar drain to be removed by neurosurgery team. Subjective: Vishal is feeling well, has no significant c/o pain. Objective: Vital Signs Temp Pulse Resp BP Pulse Ox 36.4 C 79 18 136/79 H 99 01/12/19 08:00 01/12/19 08:00 01/12/19 08:00 01/12/19 08:00 01/12/19 08:00 Laboratory Results 01/11/19 04:44 01/11/19 04:44 01/11/19 01/12/19 01/13/19 05:59 05:59 05:59 Intake Total 1000 900 300 Output Total 1175 1270 Balance -175 -370 300 PT 12.8 SEC (12.0-15.0) 01/08/19 11:15 INR 1.00 (0.83-1.16) 01/08/19 11:15 - Physical Exam Constitutional: no apparent distress, other (slender) Eyes: PERRL Ears, Nose, Mouth, Throat: hearing normal Cardiovascular: regular rate and rhythym Respiratory: no respiratory distress Gastrointestinal: normoactive bowel sounds Skin: warm Musculoskeletal: generalized weakness Neurologic: AAOx3 Psychiatric: interacting appropriately ICD10 Worksheet Patient Problems: Problems Problem Status Onset Back pain Acute Acute renal failure Acute Diarrhea Acute
--- NOTE | 2019-01-12 09:17 | NEUSURGPN ---
Date of Surgery: 01/09/19 Post Op Day: 3 Assessment/Plan: Assessment: 78 yo male that is POD #3 s/p L3/4 TLIF and redo L4/5 fusion with PSF L3-L5 Plan: -Intraop durotomy and was flat overnight -Pain well controlled this AM, doing well -no HAs -ambulating well in hallway -PT/OT-CPM -OOB with assist in LSO-tolerating well -eating/drinking and voiding -LSO-no skin issues -voiding-moved bowels -plan for dc to rehab but bed is pending -plan for removal of CECILIA this am -IM following for Parkinson's and other med issues-appreciate their car and involvement -d/w Dr Musa Subjective: Awake and alert. NAD. Eating/drinking and voiding. Ambulating well in matias. No pathak/neck/chest/abd or gu complaints. Objective: AAO x 3, PERRLA/EOMI no droop CN 2-12 grossly intact COOLEY, sens +LT follows commands Dressing: Dry. CECILIA to be removed Neuro Check Frequency: per routine Urinary Catheter in Place: No - Physician Discussed Patient with Dr.: Other (Lencho) Neurosurgery Physical Exam - Vitals, I&O, Labs I and O 01/11/19 01/12/19 01/13/19 05:59 05:59 05:59 Intake Total 1000 900 300 Output Total 1175 1270 Balance -175 -370 300 Intake: Oral (ml) 400 300 IV Infused (ml) 1000 500 Ns 1,000 ml @ 100 mls/hr 1000 500 IV CONT FERNANDO Rx#: [id number] Output: Urine (ml) 1100 1200 Catheter 350 Toilet 250 Urinal 500 1200 CECILIA Drain Output (ml) 75 70 Back Billy Wray 75 70 Other: Intake Quantity Yes Sufficient Number of Voids Urinal 1 1 Number of Stools Toilet 1 Vital Signs Temp Pulse Resp BP Pulse Ox 36.4 C 79 18 136/79 H 99 01/12/19 08:00 01/12/19 08:00 01/12/19 08:00 01/12/19 08:00 01/12/19 08:00 Laboratory Results 01/11/19 04:44 01/11/19 04:44 ICD10 Worksheet Patient Problems: Problems Problem Status Onset Back pain Acute Acute renal failure Acute Diarrhea Acute
[2019-01-12] MEDS: LISINOPRIL 10 MG TAB PO SCH ×2 (09:44→22:39)
[2019-01-12] MEDS: PRESERVISION AREDS2 FORMULA EYE VIT 1 EACH PO SCH ×2 (09:45→22:41)
[2019-01-12] MEDS: CARBIDOPA/LEVO CR 50 MG/200 MG TAB PO SCH ×2 (09:45→22:42)
[2019-01-12] MEDS: PRAMIPEXOLE 1 MG TAB PO SCH ×4 (09:46→19:22)
[2019-01-12] MEDS: CYANO/VITAMIN B12 1000 MCG TAB PO SCH (09:47)
[2019-01-12] MEDS: CHOLECALCIFEROL VIT D3 1,000 UNITS TAB PO SCH (09:47)
[2019-01-12] MEDS: FERROUS SULFATE 325 MG TAB PO SCH ×4 (09:47→22:43)
[2019-01-12] MEDS: SENNOSIDES/DOCUSATE SODIUM TAB PO SCH ×2 (10:02→22:41)
[2019-01-12] MEDS: ENOXAPARIN 40 MG/0.4 ML SYR SC SCH (13:41)
[2019-01-12] MEDS: LATANOPROST 0.005% 2.5 ML OPHT DROPS EACHEYE SCH (19:24)
[2019-01-12] MEDS: PRAVASTATIN SODIUM 20 MG TAB PO SCH (22:42)
[2019-01-13] MEDS: CARBIDOPA/LEVODOPA 25 MG/100 MG TAB PO SCH ×5 (01:58→15:28)
[2019-01-13] MEDS: ENTACAPONE 200 MG TAB PO SCH ×5 (01:59→15:28)
--- NOTE | 2019-01-13 06:48 | GOP ---
[f rep st] OPERATIVE REPORT DATE OF OPERATION: 01/09/2019 SURGEON: Cosmo Musa MD NEUROSURGEON: Cosmo Musa M.D. SALAD BAR CLERK: None. ANESTHESIA: General endotracheal and local. PREOPERATIVE DIAGNOSIS: 1. Lumbar spinal stenosis at L3-4 with right L3 radiculopathy. 2. Degenerative spondylolisthesis and scoliosis at L3-4. 3. Prior interbody and posterior fusion of L4-5 with possible pseudoarthrosis. POSTOPERATIVE DIAGNOSIS: 1. Lumbar spinal stenosis at L3-4 with right L3 radiculopathy. 2. Degenerative spondylolisthesis and scoliosis at L3-4. 3. Prior interbody and posterior fusion of L4-5 with possible pseudoarthrosis. PROCEDURE PERFORMED: 1. Removal of prior posterior hardware from L4 to L5. (CPT code 91739.). 2. Exploration of prior fusion, L4-5. (CPT code 92104.). 3. Arthrodesis with combined interbody and posterior techniques at L3-4. (CPT code 51046.). 4. Placement of interbody graft at L3-4. (CPT code 26866.). 5. Revision of posterolateral fusion at L4-5. (CPT code 38743.). 6. Pedicle screw fixation of L3 through L5. (CPT code 53929.). 7. Intra-operative stereotactic volumetric spinal navigation with the Agent Partner system. (CP T code 71522.). 8. Bone autograft obtained from the same incision. (CPT code 81089.). 9. Use of bone morphogenetic protein. (CPT code 44828.). FINDINGS: SPECIMENS: None. ESTIMATED BLOOD LOSS: 300 mL. INDICATIONS: The patient is an 78-year-old gentleman who has a history of prior L4-5 fusion done lisa [facility] 5 years ago. He relates that he had been not having his low back symptoms since then unti l about 2 months ago when he started to develop low back and right leg pain. The pain radiates into his right groin and anterior thigh in an L3 distribution. On examination, he has some weakness of ri ght dorsiflexion at the ankle. He had imaging performed including upright x-rays of the lumbar spine , as well as a CT of the abdomen and pelvis. Imaging demonstrates prior L4-5 instrumented fusion wit h an interbody graft. On the CT scan, there does not appear to be any appreciable fusion mass in the interbody space that may be fusion at least unilaterally in the posterolateral portion at that segme nt. There is residual anterolisthesis of L4 on L5. Upright films demonstrate levoscoliosis and ante rolisthesis of L3 on L4. MRI demonstrates severe spinal canal and right neural foraminal stenosis at L3-4. He did receive an epidural steroid at L3-4 two days ago, but this did not effectively relieve his pain. He was still mostly bed-bound. Given his symptoms, exam, imaging and failure of nonoper ative treatments to relieve the symptoms, it was suggested that he could undergo an extension of his fusion to the L3-4 level with decompression. He was agreeable with this plan. DESCRIPTION OF PROCEDURE: Prior to surgery, all the indications, risks, benefits, alternatives and e xpected recuperation were discussed with the patient. Appropriate consent forms were signed. The op erative site was marked by the surgeon. He was brought to the operating room, where general anesthes ia was induced and he was intubated without incident. All necessary lines and neuro-monitoring were established. He was then turned into prone position on the Billy table. All pressure points were appropriately padded. His low back was prepped and draped in the usual sterile fashion. A time-out was done per protocol. Approximately 30 mL of 0.25% Marcaine with epinephrine were injected along th e planned incision for local anesthesia and vasoconstriction. An approximately 5-inch incision was made with a #10 scalpel in the midline overlying the L3 through L5 vertebral levels. This did incorporate his prior scar from his old incision. Cerebellar retracto rs were used to maintain exposure. Bovie cautery was then used to carry the exposure deeper. The bert mbar fascia was opened and paraspinal muscles were removed in the subperiosteal plane from both sides of the inferior L2 and L3 spinous processes, and laterally over the lamina and facets at those level s. Care was taken not to disturb the facet capsules at L2-L3. The exposure was then carried out lat erally over the L4 and L5 levels to expose the prior implanted hardware. During this exposure, a shawnee t was made in the dural sac just to the right of midline in the vicinity of the prior L5 decompressio n. A piece of Gelfoam and a cottonoid were placed over this, and the exposure was continued. Once a ll of the prior hardware was broadly exposed, attention was turned to removal. Locking caps x4 were removed from the pedicle screw heads. There was some fusion bone mass around both rods, greater on t he right side, that was removed with rongeurs. Both rods were then removed from the pedicle screw he ads. Upon removing the right-sided melinda, the L5 screw felt loose within the L5 pedicle. The prior fu sed segments were tested and they did seem to move as one solid mass without any obvious movement bet ween the L4 and L5 bodies. The pedicle screws were then removed. As the right L5 pedicle screw was being removed, it was noted that the screw was actually fractured at the mid-shaft level, and the tip of the screw was retained in the L5 vertebral body. I did briefly discuss the situation with my par tner, Dr. Ferrer, regarding any suggestions he might have as far as removing that screw. There are r emoval burs available; however, this would entail drilling out a major portion of the L5 pedicle on t he right-hand side. Given that he did seem to have at least a partial fusion and no apparent movemen t between the L4 and L5 levels, it was decided that it would be best to just replace the hardware on the left side, and to leave hardware out of the right L5 pedicle. The Stealth reference ray was then attached to the spinous process of L2 and an arm spin was done. T hese images were then loaded onto the Genecure navigation system. They were adequate images. Pedicle screws were placed at L3 by first making a divot with the matchstick bur, and then using the all tip tap on the Powerease drill to create a track, the tracks were explored with ball-tip probes and felt appropriate. Bilateral pedicle screws were then placed bilaterally at L3. Bilateral pedicle screws were then placed at L4 down the prior screw tracks and also at left L5 down the prior screw track. Once all screws were in place, they were stimulated and there were no evoked responses up to 20 andreas amps at any of the screw levels. A second arm spin was performed and this demonstrated that all scre ws were appropriately placed. Attention was then towards decompression at the L3-L4 level. The L3 spinous process was removed with Leksell rongeur. This bone was saved and morcellized for later use in the fusion. Bilateral catie ctomies were performed using the matchstick bur and the high-speed drill, and finished with Kerrison rongeurs. The ligamentum flavum was removed with Kerrison rongeurs. A right total facetectomy and f oraminotomy were then performed with the matchstick bur and Kerrison rongeurs. There was adequate de compression at this level and attention was then turned to the diskectomy. The disk space was accessed through the right transforaminal approach, and a complete diskectomy was performed using disk celeste, ring curettes, serrated curettes and pituitary forceps. A trial interb juan implant was used to size as the disk space, and a graft was then prepared with bone morphogenic p rotein and autologous bone graft. The interbody graft was then placed in the L3-L4 disk space, and s pot fluoroscopy was used to confirm appropriate positioning. The graft was then expanded to full hei ght and the placement tool was removed. At this point, attention was turned to the posterolateral fusion. Two lordotic rods were placed in t he pedicle screw heads on each side. Five locking screws were then used to secure them in place, but were not tightened to strength yet. The left-sided L3 and L4 pedicle screws were compressed and the n the locking screws were tightened to torque strength. The right-sided L3 and L4 pedicle screws wer e distracted along the melinda, and then were locked into place with the set screws. The residual L3-4 a nd L5 facets, lamina, and prior fusion mass were decorticated and bone morphogenetic protein-soaked s ponges were placed on these, along with autologous bone. Attention was then turned towards the dural tear. This was repaired using sutures and paraspinal mus wayne graft. A piece of DuraGen was then laid over this. A Valsalva maneuver was performed and there was no further spinal fluid leak. At this point, attention was turned to closure. The retractors were removed. A 10-Turkish round Taz son-Wray drain was placed in the subfascial space and brought out through a separate stab incision a t the inferior right aspect of the wound. The paraspinal muscles were reapproximated with interrupte d 0 Vicryl sutures. The fascia was then closed tightly with interrupted 0 Vicryl sutures. A layer o f inverted interrupted 2-0 Vicryl sutures were used in the subcutaneous layer. A running 4-0 Monocry l subcuticular stitch was then used to close the superficial skin. A 2-0 Vicryl suture was also used to anchor the drain to the skin; the bulb was attached and suction was applied. Mastisol, Steri-Str ips, Telfa and Tegaderm dressings were then used to cover the incision. The drapes were removed from the patient. The arm was removed and the patient was turned back into supine position on his bed. Care was returned to Anesthesia to evaluate for extubation. COMPLICATIONS: Inadvertent durotomy. DRAINS: Subfascial 10-Turkish Billy-Wray drain. IMPLANTS: 1. Interbody graft at L3-4 was an 8 x 28 mm L3 cage which extended to 12 mm. 2. Pedicle screws included 6.5 x 500 mm bilaterally at L3, 7.5 x 50 mm bilaterally at L4, and 7.5 x 40 mm on the left side at L5. These were Medtronic Solera screws. 3. Bilateral lordotic rods and 5 locking caps were also implanted. DISPOSITION: It is expected that the patient will be extubated in the operating room and then taken to the postanesthesia care unit for further recovery. /[id number]/MODL
[2019-01-13 07:33] VITALS: BP 120/68
--- NOTE | 2019-01-13 07:35 | NEUSURGPN ---
Date of Surgery: 01/09/19 Post Op Day: 4 Assessment/Plan: Assessment: 78 yo male that is POD #4 s/p L3/4 TLIF and redo L4/5 fusion with PSF L3-L5 Plan: -Intraop durotomy and was flat overnight -Pain well controlled, doing well -no HAs -ambulating well in hallway/room with walker -PT/OT-CPM -OOB with assist in LSO-tolerating well -eating/drinking and voiding -LSO-no skin issues -voiding-moved bowels -plan for dc to rehab but bed is pending -ok from [facility] for dispo when insurance/bed available -CECILIA removed already/CDI -IM following for Parkinson's and other med issues-appreciate their care and involvement -d/w Dr Musa Subjective: Awake and alert. NAD. Eating/drinking and voiding. No f/c/n/v/d. No pathak/neck/ chest/abd or gu complaints. Objective: AAO x 3, PERRLA/EOMI no droop CN 2-12 grossly intact COOLEY, sens +LT follows commands Dressing: Dry. CDI/CECILIA site looks good Neuro Check Frequency: per routine Urinary Catheter in Place: No - Physician Discussed Patient with Dr.: Other (Lencho) Neurosurgery Physical Exam - Vitals, I&O, Labs I and O 01/12/19 01/13/19 01/14/19 05:59 05:59 05:59 Intake Total 900 500 Output Total 1270 1280 Balance -370 -780 Intake: Oral (ml) 400 500 IV Infused (ml) 500 Ns 1,000 ml @ 100 mls/hr 500 IV CONT FERNANDO Rx#: [id number] Output: Urine (ml) 1200 1250 Catheter 175 Urinal 1200 1075 CECILIA Drain Output (ml) 70 30 Back Billy Wray 70 30 Other: Intake Quantity Yes Yes Sufficient Number of Voids Catheter 1 Urinal 1 1 Number of Stools Toilet 1 1 Vital Signs Temp Pulse Resp BP Pulse Ox 37.6 C 69 17 120/68 100 01/13/19 07:32 01/13/19 07:32 01/13/19 07:32 01/13/19 07:32 01/13/19 07:32 Laboratory Results 01/11/19 04:44 01/11/19 04:44 ICD10 Worksheet Patient Problems: Problems Problem Status Onset Back pain Acute Acute renal failure Acute Diarrhea Acute
[2019-01-13] MEDS: CYANO/VITAMIN B12 1000 MCG TAB PO SCH (08:15)
[2019-01-13] MEDS: LISINOPRIL 10 MG TAB PO SCH (08:17)
[2019-01-13] MEDS: CHOLECALCIFEROL VIT D3 1,000 UNITS TAB PO SCH (08:19)
[2019-01-13] MEDS: POLYETHYLENE GLYCOL 3350 17 GM PKT PO SCH (08:19)
[2019-01-13] MEDS: SENNOSIDES/DOCUSATE SODIUM TAB PO SCH (08:19)
[2019-01-13] MEDS: PRESERVISION AREDS2 FORMULA EYE VIT 1 EACH PO SCH (08:20)
[2019-01-13] MEDS: CARBIDOPA/LEVO CR 50 MG/200 MG TAB PO SCH (08:20)
[2019-01-13] MEDS: ENOXAPARIN 40 MG/0.4 ML SYR SC SCH (08:20)
[2019-01-13] MEDS: PRAMIPEXOLE 1 MG TAB PO SCH ×3 (11:49→15:28)
--- NOTE | 2019-01-13 15:14 | GDS ---
[f rep st] DISCHARGE SUMMARY DIAGNOSES: 1. Thoracic and lumbar spine stenosis. 2. Headache. 3. Gait instability. 4. Parkinson disease. 5. Hypertension. 6. Hyperlipidemia. 7. Intraoperative durotomy. PROCEDURES: 1. Dr. Musa on 01/09/2019, hardware removal in L-spine with revision and posterior fusion of L3 th rough L5. 2. L3 transforaminal epidural steroid injection. HOSPITAL COURSE: This is an 78-year-old male with history of previous spinal surgeries, who had a fe w falls in the preceding months. He had worsening back pain; thus, presented to the emergency depart ment. He initially underwent an epidural steroid injection with some improvement in his pain though he did end up needing a fusion of L3 through L5 after having some hardware removal. This was done on January 09. This was complicated by an inadvertent durotomy. He did lay flat for 24 hours and has no t had any headaches since then. Otherwise, he tolerated the procedure well. He has been ambulating working with PT and OT. He has Parkinson disease. His Sinemet has been continued. He was living in [facility] prior to admission. He has been accepted to inpatient rehab. He will be discharged in stable condition to inpatient rehab. BILLING: I spent more than 30 minutes on the day of discharge coordinating care. /[id number]/MODL
[2019-01-13] MEDS: FERROUS SULFATE 325 MG TAB PO SCH (15:29)
--- NOTE | 2019-01-13 15:42 | PDIAF ---
- Diagnosis Diagnosis: spinal stenosis Code Status: Full Code - Medication Management Discharge Medications: electronically signed and located in the Home Medication List. - Orders Isolation Type: None Diet Recommendation: no restrictions on diet - Follow Up Care Current Providers and Referrals: TAMARA NAVA [Other] - As per Instructions Cosmo Musa MD [Medical Doctor] - (1-2 weeks)
--- NOTE | 2019-01-13 15:45 | ASMTLACE ---
LACE Length of stay for Answers: 7-13 days current admission Acuity / Level of Answers: Yes Care: Did the patient have an inpatient admission? Comorbidities - select Answers: Opioid dependence all that apply / Chronic pain Other Notes: Parkinson's disease; HT N # of Emergency department Answers: 1-2 visits in the last 6 months Score: 14 Date Signed: 01/13/2019 03:45 PM Electronically Signed By:SMITH Weiner
--- NOTE | 2019-01-13 15:48 | ASMTCMCOM ---
CM Note CM Note Notes: Pt medically stable for d/c to [facility] inpatient rehab, orders to be obtained via [facility]. MARIBELL Lopez to call report. Pt dghtr Darya lópez. Pt has friend Gabrielle guzman. Date Signed: 01/13/2019 03:47 PM Electronically Signed By:SMITH Weiner
--- NOTE | 2019-01-13 16:33 | ASDISCHSUM ---
Discharge Information Plan Status:Inpatient Rehab Medically Cleared to Leave: Discharge Date:01/13/2019 04:25 PM CM D/C Disposition: ADT D/C Disposition:[facility] IP Projected Discharge Date:01/13/2019 11:00 AM Transportation at D/C: Discharge Delay Reason: Follow-Up Date:01/13/2019 11:00 AM Discharge Slot: Final Diagnosis: Placement Information Referral Type:*Group Home/SNF Referral ID:[id number] Provider Name: Address 1: Phone Number: Address 2: Fax Number: City: Selection Factors: State: Referral Type:Rehabilitation Hospital Referral ID:[id number] Provider Name:[facility] Address 1:[address] [place] [address] Phone Number: Address 2: Fax Number: [facility]:[place] Selection Factors: State:[place] Patient Contact Information Contact Name:LISSETT Relationship:Daughter Address: Work Phone: [facility] Phone: [facility] Code: Email: Financial Information Financial Class:Medicare Primary Plan Desc:MEDICARE INPATIENT Primary Plan Number:[id number] Secondary Plan Desc: Secondary Plan Number: Assessment Information [facility] CM Progress Note CM Note CM Note Notes: Met with Vishal who lives at [facility] for the past 2.5yrs and Chart reviewed. Pt is a 78yr old admitted with Back and leg pain. Pt has had recurrent falls, Hx Parkinson, HTN, & Chronic back. PT & OT recommend Home care. Daughter lives in [place] 20min from Pt. CM available for needs. PLAN: TBD Date Signed: 01/07/2019 05:21 PM Electronically Signed By:Mary Ann Cervantes LACE NICOL Length of stay for Answers: 7-13 days current admission Acuity / Level of Answers: Yes Care: Did the patient have an inpatient admission? Comorbidities - select Answers: Opioid dependence all that apply / Chronic pain Other Notes: Parkinson's disease; HT N # of Emergency department Answers: 1-2 visits in the last 6 months Score: 14 Date Signed: 01/13/2019 03:45 PM Electronically Signed By:SMITH Weiner [facility] CM Progress Note CM Note CM Note Notes: Pt to have back surgery tomorrow, PT/OT will continue to assess post op. DC Plan: TBD Date Signed: 01/08/2019 02:54 PM Electronically Signed By:Amy Sanchez RN [facility] CM Progress Note CM Note CM Note Notes: Pt had back surgery yesterday, PT/OT to eval when pt can tolerate being up. DC Plan: TBD Date Signed: 01/10/2019 11:35 AM Electronically Signed By:Amy Sanchez RN [facility] CM Progress Note CM Note CM Note Notes: Post-op PT/OT carlos suggest that patient is an "excellent" candidate for acute inpatient rehab. A consult was placed yesterday afternoon. I spoke with patients daughter Darya who says that patient is quite active and rides his bike a lot. She thinks he will be motivated to go to [facility]. We will follow up with [facility] Saturday 01/13. If for some reason [facility] does not work out, Darya would like a referral to [facility]. She will be out of town 01/15 - 01/27. Case Management will follow. Date Signed: 01/11/2019 02:31 PM Electronically Signed By:Mylene Montiel RN [facility] CM Progress Note CM Note CM Note Notes: Pt medically stable for d/c to [facility] inpatient rehab, orders to be obtained via [employer]. MARIBELL Lopez to call report. Pt dghtr Darya updated. Pt has friend Gabrielle guzman. Date Signed: 01/13/2019 03:47 PM Electronically Signed By:SMITH Weiner Intervention Information Intervention Type:*IM-Signed Date of Service:01/13/2019 03:10 PM Patient Type:Inpatient Staff Member:Elizabeth Carr Hours: Discipline: Severity: Comment:
== END 2019-01-13 16:25 | DRG 454 ==
LOC: F3E 18:34 → F3N 01-09 15:27
PROVIDERS: ADMIT Internal Medicine; ATTEND Student in an Organized Health Care Education/Training Program
PROC: 3E0S3BZ Introduction of Anesthetic Agent into Epidural Space, Percutaneous Approach (ICD-10-PCS; 2019-01-07)
PROC: 3E0S33Z Introduction of Anti-inflammatory into Epidural Space, Percutaneous Approach (ICD-10-PCS; 2019-01-07)
PROC: 0SG1071 Fusion of 2 or more Lumbar Vertebral Joints with Autologous Tissue Substitute, Posterior Approach, Posterior Column, Open Approach (ICD-10-PCS; principal; 2019-01-09 13:30)
PROC: 3E0V0GB Introduction of Recombinant Bone Morphogenetic Protein into Bones, Open Approach (ICD-10-PCS; principal; 2019-01-09 13:30)
PROC: 0SJ00ZZ Inspection of Lumbar Vertebral Joint, Open Approach (ICD-10-PCS; principal; 2019-01-09 13:30)
PROC: 01NB0ZZ Release Lumbar Nerve, Open Approach (ICD-10-PCS; principal; 2019-01-09 13:30)
PROC: 0QP004Z Removal of Internal Fixation Device from Lumbar Vertebra, Open Approach (ICD-10-PCS; principal; 2019-01-09 13:30)
PROC: 0ST20ZZ Resection of Lumbar Vertebral Disc, Open Approach (ICD-10-PCS; principal; 2019-01-09 13:30)
PROC: 4A10X4G Monitoring of Central Nervous Electrical Activity, Intraoperative, External Approach (ICD-10-PCS; principal; 2019-01-09 13:30)
PROC: 8E0WXBZ Computer Assisted Procedure of Trunk Region (ICD-10-PCS; principal; 2019-01-09 13:30)
PROC: 0SG00AJ Fusion of Lumbar Vertebral Joint with Interbody Fusion Device, Posterior Approach, Anterior Column, Open Approach (ICD-10-PCS; principal; 2019-01-09 13:30)
DX: M47.26 Other spondylosis with radiculopathy, lumbar region (principal); M43.16 Spondylolisthesis, lumbar region; M41.86 Other forms of scoliosis, lumbar region; G97.41 Accidental puncture or laceration of dura during a procedure; Z98.1 Arthrodesis status; G20 Parkinson's disease; I10 Essential (primary) hypertension; E78.5 Hyperlipidemia, unspecified; Z87.891 Personal history of nicotine dependence
CPT/HCPCS: 97116-GP; 97162-GP; 97164-GP; 97165-GO; 97168-GO; 97530-GP; 97535-GO; C1713; J0171; J0690; J1100; J1170; J1650; J2270; J2405; J2704; J3010; J3301; Q9967

== ENCOUNTER 2019-01-13 14:33 | Inpatient (IN) | payer OTHER ==
[2019-01-13] MEDS ORDERED: DICLOFENAC SODIUM 1% 100 GM GEL TP PRN (17:23)
[2019-01-13] MEDS ORDERED: HYDROCODONE/APAP 5/325 TAB PO PRN (17:23)
[2019-01-13] MEDS ORDERED: ACETAMINOPHEN 325 MG TAB PO PRN (17:31)
[2019-01-13] MEDS: PRAMIPEXOLE 1 MG TAB PO SCH (18:11)
[2019-01-13] MEDS: ENTACAPONE 200 MG TAB PO SCH (18:11)
[2019-01-13] MEDS: CARBIDOPA/LEVODOPA 25 MG/100 MG TAB PO SCH (18:12)
--- NOTE | 2019-01-13 18:35 | GHP ---
[f rep st] HISTORY AND PHYSICAL POST ADMISSION PHYSICIAN EVALUATION AND REHABILITATION TREATMENT PLAN DATE OF ADMISSION: 01/13/2019 DATE OF EVALUATION: 01/13/2019. TIME OF EVALUATION: 1715. REFERRING FACILITY: [facility]. REFERRING PHYSICIAN: Cosmo Musa MD IMPAIRMENT GROUP: [id number]. DATE OF ONSET: 01/06/2019. REHABILITATION DIAGNOSIS: Debility following lumbar spinal fusion with history of Parkinson disease. ETIOLOGIC DIAGNOSES/OTHER: Nontraumatic spinal cord dysfunction. DATE OF SURGERY: 01/09/2019. HISTORY OF PRESENT ILLNESS: This patient has a history of Parkinson disease. He had recent falls and developed radicular back pain and right lower extremity pain. He was found to have lumbar and thoracic spinal stenosis, as well as mild cord compression at T7-T8 and severe cord compression at L3-L4. He underwent surgery with an L3-L4 total lumbar interbody fusion and redo of a prior L4-5 fusion with posterior fusion at L3-5. It was complicated by a durotomy, but he became symptom-free after spending some time flat on his back. His functional impairment post surgery was compounded by his history of Parkinson's. He was participating in therapies and appropriate for inpatient rehabilitation. STUDIES AND LABS DURING HOSPITAL STAY: He had anemia upon admission with a hemoglobin of 12.8 and hematocrit of 38.7. This worsened through his stay and on 01/11/2019, hemoglobin was 10.6 and hematocrit was 31.2. MCV was normal. Coagulation studies showed a normal PT. Serum chemistry was normal on the day of admission, and on 01/11/2019, was possibly consistent with dehydration with a BUN of 25 and a creatinine of 0.7. Urinalysis showed trace ketones, but otherwise, was normal. MRI of the lumbar and thoracic spine showed findings as described above, including severe bilateral neural foraminal stenosis at the L3- L4 level. There was an abdominal CT done on 01/06/2019, which ruled out recurrent inguinal hernias, adenopathy or focal fluid collection. He had a large prostate, a large hiatal hernia and an atherosclerotic aorta without aneurysm. PRECAUTIONS: He is a fall risk. He has orthopedic precautions for the lumbar spine. ACTIVE COMORBIDITIES: He has no active tier 1, tier 2 or tier 3 comorbidities. PAST MEDICAL HISTORY: 1. Lumbar spine degenerative disease. 2. Parkinson's. 3. Hypertension. 4. Dyslipidemia. 5. Glaucoma. 6. Norovirus October 2018. PAST SURGICAL HISTORY: He has had 2 prior lumbar spinal surgeries and he has 3 herniorrhaphies. PRE-HOSPITAL MEDICATIONS: 1. Carbidopa/levodopa continuous release 50/200 two tabs p.o. b.i.d. 2. Carbidopa/levodopa 25/100 two tabs at 0600, 10, 12, 1430 and 18. 3. Entacapone 200 mg p.o. at 0600, 10, 12, 1430 and 18. 4. Ferrous sulfate 325 mg p.o. t.i.d. 5. Latanoprost 0.05% 1 drop each eye at bedtime. 6. Lisinopril 15 mg p.o. b.i.d.. 7. Naproxen 5500 mg p.o. b.i.d. 8. Pramipexole 0.5 mg p.o. at 10, 12, 1430 and 1800. 9. Simvastatin 10 mg p.o. at bedtime. 10. Acetaminophen 650 mg p.o. q.8 hours p.r.n. 11. PreserVision multivitamin 1 p.o. twice daily. 12. Cholecalciferol 1000 units p.o. daily. 13. Cyanocobalamin 1000 mcg p.o. daily. 14. Diclofenac sodium gel 2 g topical q.i.d. p.r.n. 15. Tramadol 50 mg p.o. q.4 hours p.r.n. ADMISSION MEDICATIONS: 1. Acetaminophen 650 mg p.o. q.8 hours p.r.n. 2. PreserVision multivitamin 1 p.o. b.i.d. 3. Carbidopa/levodopa CR 50/200 mg 2 tablets p.o. b.i.d. 4. Carbidopa/levodopa 2 tablets p.o. at 0600, 10, 12, 1430 and 1800. 5. Cholecalciferol 1000 units p.o. daily. 6. Cyanocobalamin 1000 mcg p.o. daily. 7. Diclofenac gel 2 g b.i.d. p.r.n. 8. Entacapone 200 mg p.o. at 0600, 10, 12, 1430 and 1800. 9. Hydrocodone/acetaminophen 1-2 tabs p.o. q.4 hours p.r.n. 10. Latanoprost 0.05% 1 drop each eye at bedtime. 11. Lisinopril 50 mg p.o. twice daily. 12. Polyethylene glycol 17 g p.o. daily. 13. Pramipexole 0.5 mg p.o. at 10, 12, 1430 and 1800. 14. Simvastatin 10 mg p.o. at bedtime. 15. Tramadol 50 mg p.o. q.4 hours p.r.n. ALLERGIES: There is an allergy listed to sulfa antibiotics. PSYCHOSOCIAL HISTORY: He lives in assisted living. He is very active with bicycling and hiking. He has a local daughter and he has other friends who are involved in his care. He is a retired windows software engineer. FAMILY HISTORY: Noncontributory. REVIEW OF SYSTEMS: He reports he had constipation for a week in the hospital, but this has been relieved. He is not in pain and has not been using pain medications for several days. He denies cough or dyspnea. He denies chest pain or palpitations. He denies nausea or vomiting. He denies urinary frequency or dysuria. He denies joint pain or joint swelling. He reports that he occasionally has episodes of freezing, but he denies dyskinesias. He says he has abnormal involuntary movements of the right leg, but that these have been effectively treated with addition of pramipexole to his medication regimen. He is aware of a history of iron-deficiency anemia and reports that his primary care provider prescribed the ferrous sulfate, which he has been on for some time. Chart review reveals that it was among his medications when he was admitted for norovirus in October of this year. PHYSICAL EXAMINATION: VITAL SIGNS: Vitals are not yet available in the chart. This morning in the hospital, blood pressure was 120/68, heart rate was 69, respiratory rate was 17, oxygen saturation was 100% on room air. Temperature was 37.6 centigrade. His weight is 64 kg for a body mass index of 21.9. GENERAL: This is a well-nourished, well-developed, elderly man sitting in a chair, dressed in street clothes, cooperative and in no acute distress. HEENT: Extraocular movements are intact. Pupils are equal, round and reactive to light. Mucous membranes are moist. Dentition is in good condition. He has an uncrowded airway, Mallampati class 1. NECK: Supple. HEART: There is a regular rate and rhythm with no murmurs, rubs, or gallops. There is rate variation possibly coordinated with respiratory cycle. LUNGS: Clear to auscultation bilaterally. ABDOMEN: Soft, nontender and nondistended with normal bowel sounds. EXTREMITIES: There is no cyanosis, clubbing, or edema. NEUROLOGIC: He is alert and oriented x3. Cranial nerves 2-12 are grossly intact. There is no focal weakness. Sensation is intact to light touch. There is no tremor. There is no rigidity. He has masked facies and hypophonia. Current level of function per the preadmission screen. He was on a regular diet. Grooming required setup to standby assist standing at the sink. Dressing upper extremity required contact guard assist, and lower body required minimal assist. He was continent of bowel and bladder. Bed mobility required minimal assist with cues for log rolling and maintaining spinal precautions. Transfers required minimal assist with voice cues. He used a front-wheeled walker, a french folder and a sock aid. Seated balance was independent and standing balance required contact guard assist. Endurance was fair. He ambulated 200 feet with a front-wheeled walker and contact guard. He had a slow gait, decreased step length and step height and a flexed posture. Communication and cognition were considered normal. On today's evaluation, there are no significant changes from the preadmission screen. IMPRESSION: This is an 78-year-old man with a history of Parkinson disease and 2 prior spinal surgeries for lumbar spine degenerative disease, who suffered several recent falls and had radicular symptoms. Evaluation showed spinal stenosis and neuroforaminal stenosis of the lumbar spine. He had a redo surgery with an L3 to L4 total lumbar interbody fusion and L4 to 5 fusion with posterior spinal fusion at L3-5. Hospital stay was complicated by an intraoperative durotomy, but this healed. He has had remarkably little pain and is not using pain medications. He has functional impairments, both due to the spinal surgery and to his history of Parkinson's. He is appropriate for inpatient rehabilitation. His goal is to complete a rehabilitation stay and then return to assisted- living facility with supportive services. For a safe discharge, he will need to progress to modified independence for ADLs and functional activities. He will need to be able to maintain spinal precautions. He will be using least- restrictive assistive devices. He will have therapy with Physical Therapy and Occupational Therapy for 90 minutes per day for each discipline on 5 to 7 days of the week. His expected duration of stay is 7 to 10 days. It is anticipated that upon discharge, he will benefit from home health services including nursing, a nurse's aide, occupational therapy and physical therapy. PLAN: 1. Debility in a man with Parkinson disease, status post lumbar surgery. PT and OT to optimize mobility and activities of daily living. 2. Parkinson disease. Continue current medications. He will also benefit from physical therapy. Monitor for episodes of freezing. If Parkinson's symptoms are interfering with his progress in therapies, we will consider discussion with his neurologist. 3. Hypertension. Continue lisinopril. 4. Glaucoma. Continue latanoprost. 5. Dyslipidemia. Continue pravastatin. 6. History of iron-deficiency anemia. Unclear need for ferrous sulfate over more than 2 months and for t.i.d. dosing. Ferrous sulfate also interacts with levodopa and reduces absorption. We will discontinue ferrous sulfate. We will check a CBC, as well as an iron panel in the morning to assess his anemia, which worsened during his hospital stay, and his iron stores. 7. Prophylaxis. He had a low-risk surgery and is ambulating 200 feet or greater. There is no history of DVT or pulmonary embolus. He does not need pharmacologic prophylaxis. He will continue his LSO brace. 8. Followup. He will see neurosurgeon, Dr. Cosmo Musa in 1 to 2 weeks, most likely after his discharge from inpatient rehabilitation. /[id number]/MODL MTDD
[2019-01-13] MEDS: LISINOPRIL 10 MG TAB PO SCH (20:08)
[2019-01-13] MEDS: PRAVASTATIN SODIUM 20 MG TAB PO SCH (20:08)
[2019-01-13] MEDS: PRESERVISION AREDS2 FORMULA EYE VIT 1 EACH PO SCH (20:08)
[2019-01-13] MEDS: CARBIDOPA/LEVO CR 50 MG/200 MG TAB PO SCH (20:09)
[2019-01-13] MEDS: LATANOPROST 0.005% 2.5 ML OPHT DROPS EACHEYE SCH (20:10)
[2019-01-13] MEDS ORDERED: FERROUS SULFATE 325 MG TAB PO SCH (22:00)
[2019-01-14] MEDS: CARBIDOPA/LEVODOPA 25 MG/100 MG TAB PO SCH ×5 (05:19→17:46)
[2019-01-14] MEDS: ENTACAPONE 200 MG TAB PO SCH ×5 (05:19→17:46)
[2019-01-14 09:00] LABS: PLATELET COUNT 181 10^3/uL (150-400)
[2019-01-14] MEDS: PRAMIPEXOLE 1 MG TAB PO SCH ×4 (09:28→17:46)
[2019-01-14] MEDS: CHOLECALCIFEROL VIT D3 1,000 UNITS TAB PO SCH (09:29)
[2019-01-14] MEDS: LISINOPRIL 10 MG TAB PO SCH ×2 (09:29→20:30)
[2019-01-14] MEDS: PRESERVISION AREDS2 FORMULA EYE VIT 1 EACH PO SCH ×2 (09:29→20:30)
[2019-01-14] MEDS: POLYETHYLENE GLYCOL 3350 17 GM PKT PO SCH (09:31)
[2019-01-14] MEDS: CYANO/VITAMIN B12 1000 MCG TAB PO SCH (09:31)
--- NOTE | 2019-01-14 12:03 | SOAPPROG ---
SOAP Progress Note Assessment/Plan: Assessment: Debility in a man with Parkinson disease, status post lumbar surgery. PT and OT to optimize mobility and activities of daily living. * Asked nursing to ambulate with him to meals per Parkinson disease. Continue current medications. He will also benefit from physical therapy. Monitor for episodes of freezing. If Parkinson's symptoms are interfering with his progress in therapies, we will consider discussion with his neurologist. Hypertension. Continue lisinopril. Glaucoma. Continue latanoprost. Dyslipidemia. Continue pravastatin. History of iron-deficiency anemia. * Improving on CBC 3 04/10/2019. Not iron deficient. Discontinue ferrous sulfate. Prophylaxis. He had a low-risk surgery and is ambulating 200 feet or greater. There is no history of DVT or pulmonary embolus. He does not need pharmacologic prophylaxis. Mobilized as much as possible He will continue his LSO brace. Followup. He will see neurosurgeon, Dr. Cosmo Musa in 1 to 2 weeks, most likely after his discharge from inpatient rehabilitation. 01/14/19 13:12 Subjective: Slept okay. He is used to being up frequent times a doing some reading. Overall not in pain unless he lies on his incision. No cough or dyspnea. Feels restricted and would like to be able to be more active. Objective: Vital Signs Temp Pulse Resp BP Pulse Ox 36.7 C 62 16 134/71 H 98 01/14/19 08:00 01/14/19 08:00 01/14/19 08:00 01/14/19 09:29 01/14/19 08:00 Laboratory Results 01/14/19 06:30 01/14/19 06:30 01/13/19 01/14/19 01/15/19 05:59 05:59 05:59 Intake Total 1040 Output Total 700 Balance 340 Physical Exam - Physical Exam General Appearance: WD/WN, alert, no apparent distress Respiratory: normal breath sounds, No crackles, No rhonchi, No wheezing Cardiac/Chest: regular rate, rhythm, No edema, No diastolic murmur, No systolic murmur Skin: normal color, warm/dry Neuro/Psych: alert, normal mood/affect, oriented x 3, other (Mildly dyskinetic) ICD10 Worksheet Patient Problems: Problems Problem Status Onset Acute renal failure Acute Back pain Acute Diarrhea Acute
[2019-01-14] MEDS: CARBIDOPA/LEVO CR 50 MG/200 MG TAB PO SCH ×2 (13:26→20:30)
[2019-01-14] MEDS: PRAVASTATIN SODIUM 20 MG TAB PO SCH (20:30)
[2019-01-14] MEDS: LATANOPROST 0.005% 2.5 ML OPHT DROPS EACHEYE SCH (20:32)
[2019-01-15] MEDS: ENTACAPONE 200 MG TAB PO SCH ×5 (05:14→18:01)
[2019-01-15] MEDS: CARBIDOPA/LEVODOPA 25 MG/100 MG TAB PO SCH ×5 (05:14→18:01)
[2019-01-15] MEDS: PRESERVISION AREDS2 FORMULA EYE VIT 1 EACH PO SCH ×2 (08:32→21:19)
[2019-01-15] MEDS: CHOLECALCIFEROL VIT D3 1,000 UNITS TAB PO SCH (08:32)
[2019-01-15] MEDS: CARBIDOPA/LEVO CR 50 MG/200 MG TAB PO SCH ×2 (08:33→21:19)
[2019-01-15] MEDS: LISINOPRIL 10 MG TAB PO SCH ×2 (08:33→21:19)
[2019-01-15] MEDS: POLYETHYLENE GLYCOL 3350 17 GM PKT PO SCH (08:34)
[2019-01-15] MEDS: CYANO/VITAMIN B12 1000 MCG TAB PO SCH (08:35)
[2019-01-15] MEDS: PRAMIPEXOLE 1 MG TAB PO SCH ×4 (10:07→18:01)
--- NOTE | 2019-01-15 12:09 | SOAPPROG ---
SOAP Progress Note Assessment/Plan: Assessment: Debility in a man with Parkinson disease, status post lumbar surgery. * Initial functional independence measure is 67 on 01/15/2019. Standby assist for bed mobility to get out of bed and minimal assist to get in. Ambulated 150 ft with a front wheeled walker, contact guard assist. He he can be retro pulse of. Bath transfer requires contact guard assist and bathing is done with supervision. Toileting requires contact guard assist. Lower body dressing with supervision to minimal assist. ADLs otherwise at supervision level. * Continue PT and OT to optimize mobility and activities of daily living. * Asked nursing to ambulate with him to meals. Hypophonia. Evaluation treatment per speech and language pathology. Parkinson disease. Continue current medications. Monitor for episodes of freezing. If Parkinson's symptoms are interfering with his progress in therapies, we will consider discussion with his neurologist. Hypertension. Continue lisinopril. Glaucoma. Continue latanoprost. Dyslipidemia. Continue pravastatin. History of iron-deficiency anemia. * Improving on CBC 01/14/2019. Not iron deficient. Discontinue ferrous sulfate. Prophylaxis. He had a low-risk surgery and is ambulating 200 feet or greater. There is no history of DVT or pulmonary embolus. He does not need pharmacologic prophylaxis. Mobilized as much as possible He will continue his LSO brace. DISPOSITION. Attended staffing, 15 min, 01/15/2019. Discussed with case management, dietitian, nursing, PT, OT, DEVELOPMENT TECHNICAL LEAD. Lives at assisted living and intends to return. Needs to achieve independence or modified independence for mobility and activities of daily living. OT advises no driving and no more bicycle riding. Tentative discharge date set for 01/24/2019. Followup. He will see neurosurgeon, Dr. Cosmo Musa after his discharge from inpatient rehabilitation. 01/15/19 12:05 Subjective: No complaints. Feels well rested. Notes some soreness bilaterally in his anterior thighs but has not required any pain medication. No fevers or chills, no cough or dyspnea. Bowels are moving. Objective: Vital Signs Temp Pulse Resp BP Pulse Ox 36.4 C 60 14 114/65 96 01/15/19 08:00 01/15/19 08:00 01/15/19 08:00 01/15/19 08:33 01/15/19 08:00 Laboratory Results 01/14/19 06:30 01/14/19 06:30 01/14/19 01/15/19 01/16/19 05:59 05:59 05:59 Intake Total 1040 900 150 Output Total 700 1050 Balance 340 -150 150 - Time Spent With Patient Time Spent With Patient: Greater than 35 min floor time today, including more than 50% of time in coordination of care during staffing meeting, and counseling patient. Physical Exam - Physical Exam General Appearance: WD/WN, alert, no apparent distress Respiratory: normal breath sounds, No crackles, No rhonchi, No wheezing Cardiac/Chest: regular rate, rhythm, No diastolic murmur, No systolic murmur Skin: normal color, warm/dry Neuro/Psych: alert, normal mood/affect, oriented x 3, abnormal gait (Flexed posture, short steps, with tracking pole in right hand.), speech abnormalities ( Hypophonia) ICD10 Worksheet Patient Problems: Problems Problem Status Onset Acute renal failure Acute Back pain Acute Diarrhea Acute
[2019-01-15] MEDS: SENNOSIDES 1 TAB PO PRN ×2 (12:17→21:19)
[2019-01-15] MEDS: PRAVASTATIN SODIUM 20 MG TAB PO SCH (21:19)
[2019-01-15] MEDS: LATANOPROST 0.005% 2.5 ML OPHT DROPS EACHEYE SCH (21:20)
[2019-01-16] MEDS: CARBIDOPA/LEVODOPA 25 MG/100 MG TAB PO SCH ×5 (05:27→17:26)
[2019-01-16] MEDS: ENTACAPONE 200 MG TAB PO SCH ×5 (05:27→17:26)
[2019-01-16] MEDS: CARBIDOPA/LEVO CR 50 MG/200 MG TAB PO SCH ×2 (08:52→21:20)
[2019-01-16] MEDS: CYANO/VITAMIN B12 1000 MCG TAB PO SCH (08:52)
[2019-01-16] MEDS: CHOLECALCIFEROL VIT D3 1,000 UNITS TAB PO SCH (08:53)
[2019-01-16] MEDS: LISINOPRIL 10 MG TAB PO SCH ×2 (08:53→21:20)
[2019-01-16] MEDS: PRESERVISION AREDS2 FORMULA EYE VIT 1 EACH PO SCH ×2 (08:53→21:20)
[2019-01-16] MEDS: POLYETHYLENE GLYCOL 3350 17 GM PKT PO SCH (08:54)
[2019-01-16] MEDS: PRAMIPEXOLE 1 MG TAB PO SCH ×4 (10:14→17:26)
[2019-01-16 11:30] LABS: CREATINE KINASE 63 IU/L (0-224)
--- NOTE | 2019-01-16 11:39 | SOAPPROG ---
SOAP Progress Note Assessment/Plan: Assessment: Debility in a man with Parkinson disease, status post lumbar surgery. * Initial functional independence measure is 67 on 01/15/2019. Standby assist for bed mobility to get out of bed and minimal assist to get in. Ambulated 150 ft with a front wheeled walker, contact guard assist. He he can be retro pulse of. Bath transfer requires contact guard assist and bathing is done with supervision. Toileting requires contact guard assist. Lower body dressing with supervision to minimal assist. ADLs otherwise at supervision level. * Continue PT and OT to optimize mobility and activities of daily living. * Asked nursing to ambulate with him to meals. Hypophonia. Evaluation treatment per speech and language pathology. Parkinson disease. Continue current medications. Monitor for episodes of freezing. If Parkinson's symptoms are interfering with his progress in therapies, we will consider discussion with his neurologist. Tenderness bilateral anterior thighs. Unclear etiology. Not interfering with therapy. CPK and vitamin-D are at normal levels; added on to blood samples from 01/14/2019.. Statin myopathy is relatively unlikely with pravastatin. Continue to monitor. Hypertension. Continue lisinopril. Glaucoma. Continue latanoprost. Dyslipidemia. Continue pravastatin. History of iron-deficiency anemia. * Improving on CBC 01/14/2019. Not iron deficient. Discontinue ferrous sulfate. Prophylaxis. He had a low-risk surgery and is ambulating 200 feet or greater. There is no history of DVT or pulmonary embolus. He does not need pharmacologic prophylaxis. Mobilized as much as possible He will continue his LSO brace. DISPOSITION. Attended staffing, 15 min, 01/15/2019. Discussed with case management, dietitian, nursing, PT, OT, PAPER GUILLOTINE OPERATOR. Lives at assisted living and intends to return. Needs to achieve independence or modified independence for mobility and activities of daily living. OT advises no driving and no more bicycle riding. Tentative discharge date set for 01/24/2019. Followup. He will see neurosurgeon, Dr. Cosmo Musa after his discharge from inpatient rehabilitation. 01/16/19 12:32 Subjective: No complaints. Continues to have chronic insomnia but overall feels that he is getting enough rest. Has soreness on his anterior thighs which is unchanged. No fevers or chills, no cough or dyspnea. Concerned about possible hernia left groin. Objective: Vital Signs Temp Pulse Resp BP Pulse Ox 36.6 C 65 15 117/66 96 01/16/19 05:28 01/16/19 05:28 01/16/19 05:28 01/16/19 08:53 01/16/19 05:28 Laboratory Results 01/14/19 06:30 01/14/19 06:30 01/15/19 01/16/19 01/17/19 05:59 05:59 05:59 Intake Total 900 690 Output Total 1050 525 150 Balance -150 165 -150 Physical Exam - Physical Exam General Appearance: WD/WN, alert, no apparent distress Respiratory: No respiratory distress, No accessory muscle use Abdomen: other (No hernia left groin. Femoral pulse 2 +.) Skin: normal color, warm/dry Neuro/Psych: alert, normal mood/affect, oriented x 3, speech abnormalities ( Hypophonia) ICD10 Worksheet Patient Problems: Problems Problem Status Onset Acute renal failure Acute Back pain Acute Diarrhea Acute
[2019-01-16] MEDS: PRAVASTATIN SODIUM 20 MG TAB PO SCH (21:20)
[2019-01-16] MEDS: LATANOPROST 0.005% 2.5 ML OPHT DROPS EACHEYE SCH (21:21)
[2019-01-17] MEDS: CARBIDOPA/LEVODOPA 25 MG/100 MG TAB PO SCH ×5 (05:24→18:13)
[2019-01-17] MEDS: ENTACAPONE 200 MG TAB PO SCH ×5 (05:24→18:13)
[2019-01-17] MEDS: PRAMIPEXOLE 1 MG TAB PO SCH ×4 (08:39→18:13)
[2019-01-17] MEDS: LISINOPRIL 10 MG TAB PO SCH ×2 (08:40→21:24)
[2019-01-17] MEDS: PRESERVISION AREDS2 FORMULA EYE VIT 1 EACH PO SCH ×2 (08:40→21:24)
[2019-01-17] MEDS: CHOLECALCIFEROL VIT D3 1,000 UNITS TAB PO SCH (08:40)
[2019-01-17] MEDS: CYANO/VITAMIN B12 1000 MCG TAB PO SCH (08:41)
[2019-01-17] MEDS: CARBIDOPA/LEVO CR 50 MG/200 MG TAB PO SCH ×2 (08:41→21:24)
[2019-01-17] MEDS: POLYETHYLENE GLYCOL 3350 17 GM PKT PO SCH (08:53)
--- NOTE | 2019-01-17 09:29 | SOAPPROG ---
SOAP Progress Note Assessment/Plan: Assessment: Debility in a man with Parkinson disease, status post lumbar surgery. * Initial functional independence measure is 67 on 01/15/2019. Standby assist for bed mobility to get out of bed and minimal assist to get in. Ambulated 150 ft with a front wheeled walker, contact guard assist. He he can be retropulsive. Bath transfer requires contact guard assist and bathing is done with supervision. Toileting requires contact guard assist. Lower body dressing with supervision to minimal assist. ADLs otherwise at supervision level. * Has since ambulated 300 ft with bilateral canes, supervision level. * Continue PT and OT to optimize mobility and activities of daily living. * Asked nursing to ambulate with him to meals. Hypophonia. Evaluation treatment per speech and language pathology. Parkinson disease. Continue current medications. Monitor for episodes of freezing. If Parkinson's symptoms are interfering with his progress in therapies, we will consider discussion with his neurologist. Tenderness bilateral anterior thighs. Unclear etiology. Not interfering with therapy. CPK and vitamin-D are at normal levels; added on to blood samples from 01/14/2019.. Statin myopathy is relatively unlikely with pravastatin. Continue to monitor. * He reports improvement 01/17/2019. Hypertension. Continue lisinopril. Glaucoma. Continue latanoprost. Dyslipidemia. Continue pravastatin. History of iron-deficiency anemia. * Improving on CBC 01/14/2019. Not iron deficient. Discontinue ferrous sulfate. Prophylaxis. He had a low-risk surgery and is ambulating 200 feet or greater. There is no history of DVT or pulmonary embolus. He does not need pharmacologic prophylaxis. Mobilized as much as possible He will continue his LSO brace. DISPOSITION. Attended staffing, 15 min, 01/15/2019. Discussed with case management, dietitian, nursing, PT, OT, CARPET SEWER. Lives at assisted living and intends to return. Needs to achieve independence or modified independence for mobility and activities of daily living. OT advises no driving and no more bicycle riding. Tentative discharge date set for 01/24/2019. Followup. He will see neurosurgeon, Dr. Cosmo Musa after his discharge from inpatient rehabilitation. 01/17/19 09:27 Subjective: Still has anterior thigh pain, right so than left. He thinks it is getting a little bit better. Otherwise without complaints. No cough or dyspnea, no fevers or chills. Objective: Vital Signs Temp Pulse Resp BP Pulse Ox 37.0 C 60 16 156/75 H 97 01/17/19 06:25 01/17/19 06:25 01/17/19 06:25 01/17/19 06:25 01/17/19 06:25 Laboratory Results 01/14/19 06:30 01/14/19 06:30 01/16/19 01/17/19 01/18/19 05:59 05:59 05:59 Intake Total 690 1650 Output Total 525 500 Balance 165 1150 Physical Exam - Physical Exam General Appearance: WD/WN, alert, no apparent distress Respiratory: No respiratory distress, No accessory muscle use Skin: normal color, warm/dry Extremities: other (Tender anterior thighs) Neuro/Psych: alert, normal mood/affect, oriented x 3, speech abnormalities ( Hypophonic) ICD10 Worksheet Patient Problems: Problems Problem Status Onset Acute renal failure Acute Back pain Acute Diarrhea Acute
--- NOTE | 2019-01-17 12:33 | PDOREHIP ---
Admission [facility] - Admission - 3 Day Assessment Period Admission Date/Day 1: 01/13/19 Day 2: 01/14/19 Day 3: 01/15/19 - Active Diagnoses Comorbidities and Co-existing Conditions at Admission: [id number]. None of the Above - Skin Conditions Unhealed Pressure Ulcer (1 or more/Stage 1 or >)-Admission: 0. No # Stage 1 Pressure Ulcers-Admission: 0 # Stage 2 Pressure Ulcers-Admission: 0 # Stage 3 Pressure Ulcers-Admission: 0 # Stage 4 Pressure Ulcers-Admission: 0 # Unstageable Pressure Ulcers (Non-remove Dress)-Admission: 0 # Unstageable Pressure Ulcers (Slough/Eschar)-Admission: 0 # Unstageable Pressure Ulcers (Deep Tissue Injury)-Admission: 0 Discharge [facility] - Discharge - 3 Day Assessment Period 2 Days Prior to Anticipated Discharge Date: 01/22/19 1 Day Prior to Anticipated Discharge Date: 01/23/19 Anticipated Discharge Date: 01/24/19
[2019-01-17] MEDS: PRAVASTATIN SODIUM 20 MG TAB PO SCH (21:23)
[2019-01-17] MEDS: LATANOPROST 0.005% 2.5 ML OPHT DROPS EACHEYE SCH (21:28)
[2019-01-18] MEDS: traMADol 50 MG TAB PO PRN (03:18)
[2019-01-18] MEDS: ENTACAPONE 200 MG TAB PO SCH ×5 (05:24→17:49)
[2019-01-18] MEDS: CARBIDOPA/LEVODOPA 25 MG/100 MG TAB PO SCH ×5 (05:24→17:49)
[2019-01-18] MEDS: CARBIDOPA/LEVO CR 50 MG/200 MG TAB PO SCH ×2 (09:43→21:19)
[2019-01-18] MEDS: PRAMIPEXOLE 1 MG TAB PO SCH ×4 (09:43→17:49)
[2019-01-18] MEDS: PRESERVISION AREDS2 FORMULA EYE VIT 1 EACH PO SCH ×2 (09:44→21:19)
[2019-01-18] MEDS: LISINOPRIL 10 MG TAB PO SCH ×2 (09:44→21:19)
[2019-01-18] MEDS: CYANO/VITAMIN B12 1000 MCG TAB PO SCH (09:44)
[2019-01-18] MEDS: CHOLECALCIFEROL VIT D3 1,000 UNITS TAB PO SCH (09:44)
[2019-01-18] MEDS: POLYETHYLENE GLYCOL 3350 17 GM PKT PO SCH (09:45)
--- NOTE | 2019-01-18 10:25 | SOAPPROG ---
SOAP Progress Note Assessment/Plan: Assessment: Debility in a man with Parkinson disease, status post lumbar surgery. * Initial functional independence measure is 67 on 01/15/2019. Standby assist for bed mobility to get out of bed and minimal assist to get in. Ambulated 150 ft with a front wheeled walker, contact guard assist. He he can be retropulsive. Bath transfer requires contact guard assist and bathing is done with supervision. Toileting requires contact guard assist. Lower body dressing with supervision to minimal assist. ADLs otherwise at supervision level. * Has since ambulated 300 ft with bilateral canes, supervision level. * Continue PT and OT to optimize mobility and activities of daily living. * Asked nursing to ambulate with him to meals. Hypophonia. Evaluation treatment per speech and language pathology. Parkinson disease. Continue current medications. Monitor for episodes of freezing. If Parkinson's symptoms are interfering with his progress in therapies, we will consider discussion with his neurologist. Tenderness bilateral anterior thighs. Unclear etiology. Not interfering with therapy. CPK and vitamin-D are at normal levels; added on to blood samples from 01/14/2019.. Statin myopathy is relatively unlikely with pravastatin. Continue to monitor. * He reports improvement 01/17/2019. Neck pain, possibly related to flexed posture. Continue efforts of physical therapy. Discussed with nursing regarding using diclofenac gel, which has been prescribed for him. Hypertension. Continue lisinopril. Glaucoma. Continue latanoprost. Dyslipidemia. Continue pravastatin. History of iron-deficiency anemia. * Improving on CBC 01/14/2019. Not iron deficient. Discontinue ferrous sulfate. Prophylaxis. He had a low-risk surgery and is ambulating 200 feet or greater. There is no history of DVT or pulmonary embolus. He does not need pharmacologic prophylaxis. Mobilized as much as possible He will continue his LSO brace. DISPOSITION. Attended staffing, 15 min, 01/15/2019. Discussed with case management, dietitian, nursing, PT, OT, ARCHITECTURE PROFESSOR. Lives at assisted living and intends to return. Needs to achieve independence or modified independence for mobility and activities of daily living. OT advises no driving and no more bicycle riding. Tentative discharge date set for 01/24/2019. Followup. He will see neurosurgeon, Dr. Cosmo Musa after his discharge from inpatient rehabilitation. 01/18/19 10:23 Subjective: Had some back pain overnight and was treated with tramadol. He currently complains of neck pain after sitting up for awhile and requests the topical that he uses. He says it has not been used while he has been here per otherwise without complaints. Sleeping well. No cough or dyspnea, no fevers or chills. Objective: Vital Signs Temp Pulse Resp BP Pulse Ox 36.8 C 61 16 108/63 96 01/18/19 05:59 01/18/19 05:59 01/18/19 05:59 01/18/19 05:59 01/18/19 05:59 Laboratory Results 01/14/19 06:30 01/14/19 06:30 01/17/19 01/18/19 01/19/19 05:59 05:59 05:59 Intake Total 1650 1400 120 Output Total 500 1150 100 Balance 1150 250 20 Physical Exam - Physical Exam General Appearance: WD/WN, alert, no apparent distress Respiratory: No respiratory distress, No accessory muscle use Skin: normal color, warm/dry Neuro/Psych: alert, normal mood/affect, other (Hypophonic, flexed posture.) ICD10 Worksheet Patient Problems: Problems Problem Status Onset Acute renal failure Acute Back pain Acute Diarrhea Acute
[2019-01-18] MEDS: PRAVASTATIN SODIUM 20 MG TAB PO SCH (21:19)
[2019-01-18] MEDS: LATANOPROST 0.005% 2.5 ML OPHT DROPS EACHEYE SCH (21:57)
[2019-01-19] MEDS: CARBIDOPA/LEVODOPA 25 MG/100 MG TAB PO SCH ×5 (06:51→17:40)
[2019-01-19] MEDS: ENTACAPONE 200 MG TAB PO SCH ×5 (06:51→17:40)
[2019-01-19] MEDS: PRESERVISION AREDS2 FORMULA EYE VIT 1 EACH PO SCH ×2 (08:42→21:10)
[2019-01-19] MEDS: CHOLECALCIFEROL VIT D3 1,000 UNITS TAB PO SCH (08:42)
[2019-01-19] MEDS: traMADol 50 MG TAB PO PRN (08:42)
[2019-01-19] MEDS: CARBIDOPA/LEVO CR 50 MG/200 MG TAB PO SCH ×2 (08:43→21:10)
[2019-01-19] MEDS: CYANO/VITAMIN B12 1000 MCG TAB PO SCH (08:43)
[2019-01-19] MEDS: LISINOPRIL 10 MG TAB PO SCH ×2 (08:43→21:08)
[2019-01-19] MEDS: POLYETHYLENE GLYCOL 3350 17 GM PKT PO SCH (08:44)
[2019-01-19] MEDS: PRAMIPEXOLE 1 MG TAB PO SCH ×4 (10:35→17:40)
--- NOTE | 2019-01-19 11:51 | SOAPPROG ---
SOAP Progress Note Assessment/Plan: Assessment: Debility in a man with Parkinson disease, status post lumbar surgery. * Initial functional independence measure is 67 on 01/15/2019. Standby assist for bed mobility to get out of bed and minimal assist to get in. Ambulated 150 ft with a front wheeled walker, contact guard assist. He he can be retropulsive. Bath transfer requires contact guard assist and bathing is done with supervision. Toileting requires contact guard assist. Lower body dressing with supervision to minimal assist. ADLs otherwise at supervision level. * Has since ambulated 300 ft with bilateral canes, supervision level. * Continue PT and OT to optimize mobility and activities of daily living. * Asked nursing to ambulate with him to meals. Hypophonia. Evaluation treatment per speech and language pathology. Parkinson disease. Continue current medications. Monitor for episodes of freezing. If Parkinson's symptoms are interfering with his progress in therapies, we will consider discussion with his neurologist. Tenderness bilateral anterior thighs. Unclear etiology. Not interfering with therapy. CPK and vitamin-D are at normal levels; added on to blood samples from 01/14/2019.. Statin myopathy is relatively unlikely with pravastatin. Continue to monitor. * He reports improvement 01/17/2019. Neck pain, possibly related to flexed posture. Continue efforts of physical therapy. Discussed with nursing regarding using diclofenac gel, which has been prescribed for him. Hypertension. Continue lisinopril. Glaucoma. Continue latanoprost. Dyslipidemia. Continue pravastatin. History of iron-deficiency anemia. * Improving on CBC 01/14/2019. Not iron deficient. Discontinue ferrous sulfate. Prophylaxis. He had a low-risk surgery and is ambulating 200 feet or greater. There is no history of DVT or pulmonary embolus. He does not need pharmacologic prophylaxis. Mobilized as much as possible He will continue his LSO brace. DISPOSITION. Attended staffing, 15 min, 01/15/2019. Discussed with case management, dietitian, nursing, PT, OT, THERMODYNAMIC PHYSICIST. Lives at assisted living and intends to return. Needs to achieve independence or modified independence for mobility and activities of daily living. OT advises no driving and no more bicycle riding. Tentative discharge date set for 01/24/2019. Followup. He will see neurosurgeon, Dr. Cosmo Musa after his discharge from inpatient rehabilitation. 01/19/19 11:48 Subjective: No complaints. Sleeping well. Would like more independence in the room. Says he gets stiff neck if he sits up and reads for while. Objective: Vital Signs Temp Pulse Resp BP Pulse Ox 36.3 C 61 16 127/73 H 96 01/19/19 05:17 01/19/19 05:17 01/19/19 05:17 01/19/19 05:17 01/19/19 05:17 Laboratory Results 01/14/19 06:30 01/14/19 06:30 01/18/19 01/19/19 01/20/19 05:59 05:59 05:59 Intake Total 1400 750 360 Output Total 1150 875 125 Balance 250 -125 235 Physical Exam - Physical Exam General Appearance: WD/WN, alert, no apparent distress Respiratory: No respiratory distress, No accessory muscle use Skin: normal color, warm/dry Neuro/Psych: alert, normal mood/affect, oriented x 3, abnormal gait (Pace is somewhat slow but not markedly slow. Narrow base of support. Reduced step length. Flexed posture.), other (Hypophonic and reduced facial expression.) ICD10 Worksheet Patient Problems: Problems Problem Status Onset Acute renal failure Acute Back pain Acute Diarrhea Acute
[2019-01-19] MEDS: PRAVASTATIN SODIUM 20 MG TAB PO SCH (21:10)
[2019-01-19] MEDS: LATANOPROST 0.005% 2.5 ML OPHT DROPS EACHEYE SCH (21:10)
[2019-01-20] MEDS: CARBIDOPA/LEVODOPA 25 MG/100 MG TAB PO SCH ×5 (05:34→18:18)
[2019-01-20] MEDS: ENTACAPONE 200 MG TAB PO SCH ×5 (05:35→18:17)
[2019-01-20] MEDS: PRAMIPEXOLE 1 MG TAB PO SCH ×4 (08:45→18:16)
[2019-01-20] MEDS: CARBIDOPA/LEVO CR 50 MG/200 MG TAB PO SCH ×2 (08:47→20:26)
[2019-01-20] MEDS: CYANO/VITAMIN B12 1000 MCG TAB PO SCH (08:47)
[2019-01-20] MEDS: PRESERVISION AREDS2 FORMULA EYE VIT 1 EACH PO SCH ×2 (08:50→20:26)
[2019-01-20] MEDS: POLYETHYLENE GLYCOL 3350 17 GM PKT PO SCH (08:51)
[2019-01-20] MEDS: CHOLECALCIFEROL VIT D3 1,000 UNITS TAB PO SCH (08:51)
[2019-01-20] MEDS: LISINOPRIL 10 MG TAB PO SCH (08:54)
--- NOTE | 2019-01-20 09:53 | SOAPPROG ---
SOAP Progress Note Assessment/Plan: Assessment: Debility in a man with Parkinson disease, status post lumbar surgery. * Initial functional independence measure is 67 on 01/15/2019. Standby assist for bed mobility to get out of bed and minimal assist to get in. Ambulated 150 ft with a front wheeled walker, contact guard assist. He he can be retropulsive. Bath transfer requires contact guard assist and bathing is done with supervision. Toileting requires contact guard assist. Lower body dressing with supervision to minimal assist. ADLs otherwise at supervision level. * Has since ambulated 300 ft with bilateral canes, supervision level. * Continue PT and OT to optimize mobility and activities of daily living. * Asked nursing to ambulate with him to meals. Hypophonia. Evaluation treatment per speech and language pathology. Parkinson disease. Continue current medications. Monitor for episodes of freezing. If Parkinson's symptoms are interfering with his progress in therapies, we will consider discussion with his neurologist. Tenderness bilateral anterior thighs. Unclear etiology. Not interfering with therapy. CPK and vitamin-D are at normal levels; added on to blood samples from 01/14/2019.. Statin myopathy is relatively unlikely with pravastatin. Continue to monitor. * He reports improvement 01/17/2019. Neck pain, possibly related to flexed posture. Continue efforts of physical therapy. Discussed with nursing regarding using diclofenac gel, which has been prescribed for him. Hypertension. * Hypotensive, evening of 01/19/2019 and morning of 01/20/2019. Has had reduced p.o. Intake. Encourage oral hydration. Change lisinopril from 15 mg twice daily to 15 mg daily starting 01/20/2019. Add parameters to hold for systolic blood pressure less than 120. * Check orthostatics. Check BMP 01/20/2019. Cellulitis, proximal and distal aspects of incision. Will treat with cephalexin , starting 01/20/2019. Check CBC 10/2018. Glaucoma. Continue latanoprost. Dyslipidemia. Continue pravastatin. History of iron-deficiency anemia. * Improving on CBC 01/14/2019. Not iron deficient. Discontinued ferrous sulfate. Prophylaxis. He had a low-risk surgery and is ambulating 200 feet or greater. There is no history of DVT or pulmonary embolus. He does not need pharmacologic prophylaxis. Mobilized as much as possible He will continue his LSO brace. DISPOSITION. Attended staffing, 15 min, 01/15/2019. Discussed with case management, dietitian, nursing, PT, OT, BARREL PLANER. Lives at assisted living and intends to return. Needs to achieve independence or modified independence for mobility and activities of daily living. OT advises no driving and no more bicycle riding. Tentative discharge date set for 01/24/2019. Followup. He will see neurosurgeon, Dr. Cosmo Musa after his discharge from inpatient rehabilitation. 01/20/19 09:51 01/20/19 10:42 Subjective: Low blood pressure noted by nurses and lisinopril has been hel yesterday evening and this morning. He denies any symptoms; no lightheadedness or dizziness with standing. Otherwise doing well. No complaints. He reports his anterior thigh pain is almost gone. Nurse noted erythema to proximal and distal areas of lumbar incision. He reports slight tenderness especially distal. Objective: Vital Signs Temp Pulse Resp BP Pulse Ox 36.5 C 61 16 96/47 L 95 01/20/19 06:17 01/20/19 08:52 01/20/19 06:17 01/20/19 08:54 01/20/19 06:17 Laboratory Results 01/14/19 06:30 01/14/19 06:30 01/19/19 01/20/19 01/21/19 05:59 05:59 05:59 Intake Total 750 1010 Output Total 875 625 Balance -125 385 Physical Exam - Physical Exam General Appearance: WD/WN, alert, no apparent distress Respiratory: normal breath sounds, No crackles, No rhonchi, No wheezing Cardiac/Chest: regular rate, rhythm, systolic murmur, No edema Skin: normal color, warm/dry, other (Approximately 1 symptom meter area of erythema at proximal and distal aspects of incision. Slight tenderness around distal incision.) Neuro/Psych: alert, normal mood/affect, oriented x 3, speech abnormalities ( Hypophonia) ICD10 Worksheet Patient Problems: Problems Problem Status Onset Acute renal failure Acute Back pain Acute Diarrhea Acute
[2019-01-20 12:31] LABS: PLATELET COUNT 258 10^3/uL (150-400)
[2019-01-20] MEDS: CEPHALEXIN 500 MG CAP PO SCH ×3 (12:59→23:37)
[2019-01-20] MEDS: PRAVASTATIN SODIUM 20 MG TAB PO SCH (20:26)
[2019-01-20] MEDS: LATANOPROST 0.005% 2.5 ML OPHT DROPS EACHEYE SCH (20:26)
[2019-01-21] MEDS: traMADol 50 MG TAB PO PRN (04:44)
[2019-01-21] MEDS: ENTACAPONE 200 MG TAB PO SCH ×5 (05:24→18:19)
[2019-01-21] MEDS: CARBIDOPA/LEVODOPA 25 MG/100 MG TAB PO SCH ×5 (05:25→18:19)
[2019-01-21] MEDS: CEPHALEXIN 500 MG CAP PO SCH ×3 (05:25→18:19)
[2019-01-21] MEDS: CYANO/VITAMIN B12 1000 MCG TAB PO SCH (08:19)
[2019-01-21] MEDS: CHOLECALCIFEROL VIT D3 1,000 UNITS TAB PO SCH (08:19)
[2019-01-21] MEDS: CARBIDOPA/LEVO CR 50 MG/200 MG TAB PO SCH ×2 (08:19→20:37)
[2019-01-21] MEDS: LISINOPRIL 10 MG TAB PO SCH (08:19)
[2019-01-21] MEDS: POLYETHYLENE GLYCOL 3350 17 GM PKT PO SCH (08:19)
[2019-01-21] MEDS: PRESERVISION AREDS2 FORMULA EYE VIT 1 EACH PO SCH ×2 (08:19→20:37)
[2019-01-21] MEDS: PRAMIPEXOLE 1 MG TAB PO SCH ×4 (10:08→18:19)
--- NOTE | 2019-01-21 13:00 | SOAPPROG ---
SOAP Progress Note Assessment/Plan: Assessment: Debility in a man with Parkinson disease, status post lumbar surgery. * Initial functional independence measure is 67 on 01/15/2019. Standby assist for bed mobility to get out of bed and minimal assist to get in. Ambulated 150 ft with a front wheeled walker, contact guard assist. He he can be retropulsive. Bath transfer requires contact guard assist and bathing is done with supervision. Toileting requires contact guard assist. Lower body dressing with supervision to minimal assist. ADLs otherwise at supervision level. * Has since ambulated 300 ft with bilateral canes, supervision level. * Continue PT and OT to optimize mobility and activities of daily living. * Asked nursing to ambulate with him to meals. Hypophonia. Continue treatment per speech and language pathology. Parkinson disease. Continue current medications. Monitor for episodes of freezing. If Parkinson's symptoms are interfering with his progress in therapies, we will consider discussion with his neurologist. Tenderness bilateral anterior thighs. Unclear etiology. Not interfering with therapy. CPK and vitamin-D are at normal levels; added on to blood samples from 01/14/2019.. Statin myopathy is relatively unlikely with pravastatin. Continue to monitor. * He reports improvement 01/17/2019. Neck pain, possibly related to flexed posture. Continue efforts of physical therapy. Discussed with nursing regarding using diclofenac gel, which has been prescribed for him. Hypertension. * Hypotensive, evening of 01/19/2019 and morning of 01/20/2019. Has had reduced p.o. Intake. Encourage oral hydration. Change lisinopril from 15 mg twice daily to 15 mg daily starting 01/20/2019. Add parameters to hold for systolic blood pressure less than 120. * Check orthostatics. Dehydrated on BMP 01/20/2019, and with mildly elevated potassium. Hyperkalemia, mild, with K 5.8 on 01/20/2019. * Encourage p.o. hydration. Repeat BMP 01/22/2019. Cellulitis, proximal and distal aspects of incision. Initiated cephalexin, starting 01/20/2019. CBC with leukocytosis 01/20/2019. * Appears to be responding to antibiotics. Recheck CBC, 01/22/2019. Glaucoma. Continue latanoprost. Dyslipidemia. Continue pravastatin. History of iron-deficiency anemia. * Improving on CBC 01/14/2019. Not iron deficient. Discontinued ferrous sulfate. Prophylaxis. He had a low-risk surgery and is ambulating 200 feet or greater. There is no history of DVT or pulmonary embolus. He does not need pharmacologic prophylaxis. Mobilized as much as possible He will continue his LSO brace. DISPOSITION. Attended staffing, 15 min, 01/15/2019. Discussed with case management, dietitian, nursing, PT, OT, NEUROLOGICAL SURGEON. Lives at assisted living and intends to return. Needs to achieve independence or modified independence for mobility and activities of daily living. OT advises no driving and no more bicycle riding. Tentative discharge date set for 01/24/2019. Followup. He will see neurosurgeon, Dr. Cosmo Musa after his discharge from inpatient rehabilitation. 01/21/19 12:56 Subjective: Concerned about his credit card, which was lost between his inpatient stay for surgery and his transfer to inpatient rehabilitation. Feels adequately rested though he never sleeps well. Not in pain. No cough or dyspnea, no fevers or chills. Objective: Vital Signs Temp Pulse Resp BP Pulse Ox 36.7 C 64 16 129/73 H 95 01/21/19 07:12 01/21/19 07:12 01/21/19 07:12 01/21/19 08:19 01/21/19 07:12 Laboratory Results 01/20/19 11:25 01/20/19 11:25 01/20/19 01/21/19 01/22/19 05:59 05:59 05:59 Intake Total 1010 1118 Output Total 625 550 Balance 385 568 Physical Exam - Physical Exam General Appearance: WD/WN, alert, no apparent distress Respiratory: No respiratory distress, No accessory muscle use Skin: normal color, warm/dry, other (Lumbar incision with no erythema, swelling or drainage) Neuro/Psych: alert, normal mood/affect, oriented x 3, speech abnormalities ( Hypophonia) ICD10 Worksheet Patient Problems: Problems Problem Status Onset Acute renal failure Acute Back pain Acute Diarrhea Acute
[2019-01-21] MEDS: PRAVASTATIN SODIUM 20 MG TAB PO SCH (20:37)
[2019-01-21] MEDS: LATANOPROST 0.005% 2.5 ML OPHT DROPS EACHEYE SCH (20:37)
[2019-01-22] MEDS: CEPHALEXIN 500 MG CAP PO SCH ×4 (00:31→17:26)
[2019-01-22 05:39] LABS: PLATELET COUNT 227 10^3/uL (150-400)
[2019-01-22] MEDS: CARBIDOPA/LEVODOPA 25 MG/100 MG TAB PO SCH ×5 (05:52→17:27)
[2019-01-22] MEDS: ENTACAPONE 200 MG TAB PO SCH ×5 (05:52→17:26)
[2019-01-22] MEDS: PRESERVISION AREDS2 FORMULA EYE VIT 1 EACH PO SCH ×2 (07:53→22:28)
[2019-01-22] MEDS: CARBIDOPA/LEVO CR 50 MG/200 MG TAB PO SCH ×2 (07:53→22:28)
[2019-01-22] MEDS: LISINOPRIL 10 MG TAB PO SCH (07:53)
[2019-01-22] MEDS: CHOLECALCIFEROL VIT D3 1,000 UNITS TAB PO SCH (07:53)
[2019-01-22] MEDS: CYANO/VITAMIN B12 1000 MCG TAB PO SCH (07:53)
[2019-01-22] MEDS: POLYETHYLENE GLYCOL 3350 17 GM PKT PO SCH (07:53)
[2019-01-22] MEDS: PRAMIPEXOLE 1 MG TAB PO SCH ×4 (09:52→17:27)
--- NOTE | 2019-01-22 11:43 | SOAPPROG ---
SOAP Progress Note Assessment/Plan: Assessment: Debility in a man with Parkinson disease, status post lumbar surgery. * Initial functional independence measure is 67 on 01/15/2019, improved to 84 as of 01/22/2019. Standby assist for bed mobility. Transfers with standby assist to minimal assist. He is retropulsive when he is tired. Ambulates with contact guard to minimal assist and a front wheeled walker 150 ft. Stride length is shorter on the left than the right leg. Climbed and descended a curb step with 1 rail and 1 trekking pole. Has decreased insight into safety issues. Left the stove on in a cooking task with OT. Decreased recall of spinal precautions. Needs cues regarding precautions for dressing. Otherwise upper body is done with supervision and lower body with minimal assist to standby assist. Bathing and bath transfer required contact guard assist. * Continue PT and OT to optimize mobility and activities of daily living. Hypophonia. Continue treatment per speech and language pathology. Cognitive impairment. * Scored 15/30 on SLUMS. Decreased executive function, problem-solving. Parkinson disease. Continue current medications. Monitor for episodes of freezing. If Parkinson's symptoms are interfering with his progress in therapies, we will consider discussion with his neurologist. History of iron-deficiency anemia. * Improving on CBC 01/14/2019. Not iron deficient. Discontinued ferrous sulfate. * Slightly worse on CBC 01/22/2019. Normal B12 and was not iron-deficient when recently tested. Low reticulocytosis. Await hemoccult. Tenderness bilateral anterior thighs. Unclear etiology. Not interfering with therapy. CPK and vitamin-D are at normal levels; added on to blood samples from 01/14/2019.. Statin myopathy is relatively unlikely with pravastatin. Continue to monitor. * He reports improvement 01/17/2019. Neck pain, possibly related to flexed posture. Continue efforts of physical therapy. Discussed with nursing regarding using diclofenac gel, which has been prescribed for him. Hypertension. * Hypotensive, evening of 01/19/2019 and morning of 01/20/2019. Has had reduced p.o. Intake. Encourage oral hydration. Change lisinopril from 15 mg twice daily to 15 mg daily starting 01/20/2019. Add parameters to hold for systolic blood pressure less than 120. * Check orthostatics. Dehydrated on BMP 01/20/2019, and with mildly elevated potassium. Hyperkalemia, mild, with K 5.8 on 01/20/2019. * Encourage p.o. hydration. Repeat BMP 01/22/2019. Cellulitis, proximal and distal aspects of incision. Initiated cephalexin, starting 01/20/2019. CBC with leukocytosis 01/20/2019. * Appears to be responding to antibiotics. Leukocytosis resolved on CBC, 2018. Glaucoma. Continue latanoprost. Dyslipidemia. Continue pravastatin. Prophylaxis. He had a low-risk surgery and is ambulating 200 feet or greater. There is no history of DVT or pulmonary embolus. He does not need pharmacologic prophylaxis. Mobilized as much as possible He will continue his LSO brace. DISPOSITION. Attended staffing, 15 min, 01/22/2019. Discussed with case management, dietitian, nursing, PT, OT, CELLULAR BIOLOGIST. Lives at assisted living and intends to return, but therapists concerned re safety. Might be better served at a different [facility] with higher level of service, or SNF stay, or might benefit from [facility] services. OT advises no driving and no more bicycle riding. Tentative discharge date set for 01/24/2019. Followup. He will see neurosurgeon, Dr. Cosmo Musa after his discharge from inpatient rehabilitation. He sees neurologist at the [facility] in [place]. 01/22/19 11:44 Subjective: No complaints. Staff reports an episode of confusion yesterday afternoon and urinary incontinence. He does not recall these events. He feels he gets adequate rest though he eats sleeps poorly. He is not interested in medication to help his sleep. Not in pain. No cough or dyspnea, no fevers or chills. Objective: Vital Signs Temp Pulse Resp BP Pulse Ox 36.9 C 61 15 129/57 H 96 01/22/19 04:55 01/22/19 04:55 01/22/19 04:55 01/22/19 04:55 01/22/19 04:55 Laboratory Results 01/22/19 05:00 01/22/19 05:00 01/21/19 01/22/19 01/23/19 05:59 05:59 05:59 Intake Total 1118 1235 240 Output Total 550 600 Balance 568 635 240 - Time Spent With Patient Time Spent With Patient: Greater than 35 minutes floor time today, including more than 50% of time in coordination of care during staffing meeting, and counseling patient. Physical Exam - Physical Exam General Appearance: WD/WN, alert, no apparent distress Respiratory: No respiratory distress, No accessory muscle use Skin: normal color, warm/dry Neuro/Psych: alert, normal mood/affect, oriented x 3, abnormal gait (Flexed posture, short steps, narrow base, with front wheeled walker. Arises from chair to front wheeled walker independently.), speech abnormalities (Hypophonia) ICD10 Worksheet Patient Problems: Problems Problem Status Onset Acute renal failure Acute Back pain Acute Diarrhea Acute
[2019-01-22] MEDS ORDERED: CARBIDOPA/LEVO CR 50 MG/200 MG TAB PO ONE (19:55)
[2019-01-22] MEDS: PRAVASTATIN SODIUM 20 MG TAB PO SCH (22:28)
[2019-01-22] MEDS: LATANOPROST 0.005% 2.5 ML OPHT DROPS EACHEYE SCH (22:28)
[2019-01-23] MEDS: CEPHALEXIN 500 MG CAP PO SCH ×5 (00:21→23:29)
[2019-01-23] MEDS: CARBIDOPA/LEVODOPA 25 MG/100 MG TAB PO SCH ×5 (05:19→18:23)
[2019-01-23] MEDS: ENTACAPONE 200 MG TAB PO SCH ×5 (05:19→18:23)
[2019-01-23] MEDS: POLYETHYLENE GLYCOL 3350 17 GM PKT PO SCH (08:35)
[2019-01-23] MEDS: CARBIDOPA/LEVO CR 50 MG/200 MG TAB PO SCH ×2 (08:36→20:40)
[2019-01-23] MEDS: PRESERVISION AREDS2 FORMULA EYE VIT 1 EACH PO SCH ×2 (08:36→20:40)
[2019-01-23] MEDS: CYANO/VITAMIN B12 1000 MCG TAB PO SCH (08:37)
[2019-01-23] MEDS: CHOLECALCIFEROL VIT D3 1,000 UNITS TAB PO SCH (08:37)
[2019-01-23] MEDS: LISINOPRIL 10 MG TAB PO SCH (08:43)
[2019-01-23] MEDS: PRAMIPEXOLE 1 MG TAB PO SCH ×4 (10:39→18:24)
--- NOTE | 2019-01-23 11:25 | SOAPPROG ---
SOAP Progress Note Assessment/Plan: Assessment: Debility in a man with Parkinson disease, status post lumbar surgery. * Initial functional independence measure is 67 on 01/15/2019, improved to 84 as of 01/22/2019. Standby assist for bed mobility. Transfers with standby assist to minimal assist. He is retropulsive when he is tired. Ambulates with contact guard to minimal assist and a front wheeled walker 150 ft. Stride length is shorter on the left than the right leg. Climbed and descended a curb step with 1 rail and 1 trekking pole. Has decreased insight into safety issues. Left the stove on in a cooking task with OT. Decreased recall of spinal precautions. Needs cues regarding precautions for dressing. Otherwise upper body is done with supervision and lower body with minimal assist to standby assist. Bathing and bath transfer required contact guard assist. * Advanced to independent in his room today, 01/23/2019. * Continue PT and OT to optimize mobility and activities of daily living. Hypophonia. Continue treatment per speech and language pathology. Cognitive impairment. * Scored 15/30 on SLUMS. Decreased executive function, problem-solving. Parkinson disease. Continue current medications. Monitor for episodes of freezing. If Parkinson's symptoms are interfering with his progress in therapies, we will consider discussion with his neurologist. History of iron-deficiency anemia. * Improving on CBC 01/14/2019. Not iron deficient. Discontinued ferrous sulfate. * Slightly worse on CBC 01/22/2019. Normal B12 and was not iron-deficient when recently tested. Low reticulocytosis. Await hemoccult. Follow up with primary care after discharge Tenderness bilateral anterior thighs. Unclear etiology. Not interfering with therapy. CPK and vitamin-D are at normal levels; added on to blood samples from 01/14/2019.. Statin myopathy is relatively unlikely with pravastatin. Continue to monitor. * He reports improvement 01/17/2019. Neck pain, possibly related to flexed posture. Continue efforts of physical therapy. Discussed with nursing regarding using diclofenac gel, which has been prescribed for him. Hypertension. * Hypotensive, evening of 01/19/2019 and morning of 01/20/2019. Has had reduced p.o. Intake. Encourage oral hydration. Change lisinopril from 15 mg twice daily to 15 mg daily starting 01/20/2019. Add parameters to hold for systolic blood pressure less than 120. * Check orthostatics. Dehydrated on BMP 01/20/2019, and with mildly elevated potassium. Hyperkalemia, mild, with K 5.8 on 01/20/2019. * Encourage p.o. hydration. Resolved on BMP 01/22/2019. Cellulitis, proximal and distal aspects of incision. Initiated cephalexin, starting 01/20/2019. CBC with leukocytosis 01/20/2019. * Appears to be responding to antibiotics. Leukocytosis resolved on CBC, 2018. Glaucoma. Continue latanoprost. Dyslipidemia. Continue pravastatin. Prophylaxis. He had a low-risk surgery and is ambulating 200 feet or greater. There is no history of DVT or pulmonary embolus. He does not need pharmacologic prophylaxis. Mobilized as much as possible He will continue his LSO brace. DISPOSITION. Attended staffing, 15 min, 01/22/2019. Discussed with case management, dietitian, nursing, PT, OT, LIABILITY CLAIMS ADJUSTER. Lives at assisted living and intends to return, but therapists concerned re safety. Might be better served at a different [facility] with higher level of service, or SNF stay, or might benefit from [place] home services. OT advises no driving and no more bicycle riding. Tentative home to independent living on 01/24/2019. Will have home care consultant regarding medications, PT, OT, LIABILITY CLAIMS ADJUSTER. Followup. He will see neurosurgeon, Dr. Cosmo Musa after his discharge from inpatient rehabilitation. He sees neurologist at the [facility] in [place]. Primary care provider is Dr. Armida Wolf at the [facility]. 01/23/19 11:22 Subjective: No bowel movement for several days. He denies discomfort. Otherwise without complaints. Continues to sleep intermittently through the night. Objective: Vital Signs Temp Pulse Resp BP Pulse Ox 36.6 C 72 16 103/65 96 01/23/19 05:14 01/23/19 08:40 01/23/19 05:14 01/23/19 08:40 01/23/19 08:40 Laboratory Results 01/22/19 05:00 01/22/19 05:00 01/22/19 01/23/19 01/24/19 05:59 05:59 05:59 Intake Total 1235 1070 Output Total 600 701 Balance 635 369 Physical Exam - Physical Exam General Appearance: WD/WN, alert, no apparent distress Respiratory: No respiratory distress, No accessory muscle use Skin: normal color, warm/dry Neuro/Psych: alert, normal mood/affect, oriented x 3, speech abnormalities ( Hypophonic) ICD10 Worksheet Patient Problems: Problems Problem Status Onset Acute renal failure Acute Back pain Acute Diarrhea Acute
[2019-01-23] MEDS: PRAVASTATIN SODIUM 20 MG TAB PO SCH (20:40)
[2019-01-23] MEDS: LATANOPROST 0.005% 2.5 ML OPHT DROPS EACHEYE SCH (23:27)
[2019-01-24] MEDS: CEPHALEXIN 500 MG CAP PO SCH ×2 (05:18→12:32)
[2019-01-24] MEDS: CARBIDOPA/LEVODOPA 25 MG/100 MG TAB PO SCH ×3 (05:18→12:32)
[2019-01-24] MEDS: ENTACAPONE 200 MG TAB PO SCH ×3 (05:18→12:33)
[2019-01-24 08:44] VITALS: BP 108/62
[2019-01-24] MEDS: POLYETHYLENE GLYCOL 3350 17 GM PKT PO SCH (08:47)
[2019-01-24] MEDS: LISINOPRIL 10 MG TAB PO SCH (08:47)
[2019-01-24] MEDS: PRESERVISION AREDS2 FORMULA EYE VIT 1 EACH PO SCH (08:47)
[2019-01-24] MEDS: CYANO/VITAMIN B12 1000 MCG TAB PO SCH (08:49)
[2019-01-24] MEDS: CARBIDOPA/LEVO CR 50 MG/200 MG TAB PO SCH (08:49)
[2019-01-24] MEDS: CHOLECALCIFEROL VIT D3 1,000 UNITS TAB PO SCH (08:49)
[2019-01-24] MEDS: PRAMIPEXOLE 1 MG TAB PO SCH ×2 (10:32→12:33)
--- NOTE | 2019-01-24 14:38 | GDS ---
[f rep st] DISCHARGE SUMMARY ADMITTING DIAGNOSIS: Debility following lumbar spinal fusion surgery in a patient with a history of Parkinson disease. DISCHARGE DIAGNOSIS: Debility following lumbar spinal fusion surgery in a patient with a history of Parkinson disease. OTHER DISCHARGE DIAGNOSES: 1. Cognitive impairment. 2. Anemia. 3. Hypertension. COMPLICATIONS: There were none. PROCEDURES: There were none. HISTORY AND HOSPITAL COURSE: This patient was admitted from [facility]. He had presented there on 01/06/2019, following a fall with radicular back pain and right lower extremity pain. 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 He underwent surgery with an L3-L4 total lumbar interbody fusion and a redo of a prior L4-5 fusion with posterior fusion at L3-5. His functional impairment post surgery was compounded by his history of Parkinson disease, so he was discharged to inpatient rehabilitation. He did well in rehabilitation. Initially, he needed assistance in many areas of mobility and activities of daily living at the assisted level. He improved to the assisted living or close to independent level during his stay. He was made independent in his room as of 01/23/2019. He was independent with bed mobility and transfers. He used a front-wheeled walker, which he managed approximately 75% of the time with adequate safety awareness. He ambulated 150 feet or greater with the front-wheeled walker and climbed and descended 6 steps with bilateral railings and distant supervision and he was able to go up and down 1 curb step independently with use of the front-wheeled walker. He was standby assist to independent with activities of daily living. He had treatment with Speech and Language Pathology for hypophonia and for cognitive impairment. He scored 15/30 on the [facility] Mental Status Exam, which is in the demented range, with decreased executive function and problem solving. He had improvement in his hypophonia. He had a history of iron-deficiency anemia and reported that he had been on iron for many months. He had lab tests for his iron and transferrin and he was not iron deficient. Iron supplement was discontinued. He, however, continued to be anemic. Hemoglobin and hematocrit on 01/14/2019, were 12.1 and 36.2. These decreased during his stay to 11.1 and 33.5 on 01/22/2019. MCV was normal. B12 was checked and was normal at 783. He had a relatively low reticulocytosis with absolute reticulocyte count of 0.06 and percent reticulocyte 1.85. He had Hemoccult testing x1 and was negative. He was previously hypertensive and had been treated with lisinopril 15 mg twice daily. He was found to be hypotensive. Lisinopril was tapered to 15 mg daily with parameters to not give to him if his systolic was below 110. On the day before discharge in the afternoon, blood pressure was 81/44. On the day of discharge in the morning, blood pressure was 108/62. He received no lisinopril on the day of discharge. The dose was changed to 5 mg daily with parameters to hold for systolic blood pressure less than 120. Basic metabolic profile was overall normal on 01/22/2019. However, he appeared to be mildly dehydrated with a BUN of 44 and a creatinine of 1. He was encouraged to increase his p.o. fluid intake. He had mild cellulitis with erythema at the proximal and distal aspects of his lumbar incision. This resolved with a few days of cephalexin, which was subsequently not continued. DISCHARGE PLAN: Disposition is home to his independent-living facility. CONDITION: Good. ACTIVITY: Ad shahida, but he was instructed to not drive and to cease riding his bicycle. He was advised to consider a three-wheeled bicycle due to much less risk of fall. DIET: Regular. ALLERGIES: He continues to have allergy listed to sulfonamide antibiotics, but there were no new drug allergies during his hospitalization. MEDICATIONS ON DISCHARGE: 1. Sinemet CR 50/200 two tabs p.o. twice daily. 2. Sinemet 25/100 one tab at 6 a.m., 10 a.m., noon, 2:30 p.m., and 6 p.m. 3. Diclofenac sodium 1% gel 4 times daily p.r.n. 4. Entacapone 200 mg p.o. at 6 a.m., 10 a.m., noon, 2:30 p.m., and 6 p.m. 5. Latanoprost 0.005% 1 drop each eye at bedtime. 6. Lisinopril 5 mg p.o. daily. 7. Pramipexole 0.5 mg p.o. at 10 a.m., noon, 2:30 p.m. and 6 p.m. 8. Senna 1 tab p.o. twice daily p.r.n. 9. Simvastatin 10 mg p.o. at bedtime. 10. Tramadol 50 mg p.o. q.4 hours p.r.n. ISSUES TO BE ADDRESSED AT FOLLOWUP: 1. Mobility and activities of daily living. Continue PT and OT after discharge and follow up with primary care. 2. Hypophonia and cognitive impairment. He will continue to work with Speech and Language Pathology and can follow up with primary care. 3. Parkinson disease has been adequately controlled, though he has ongoing mobility limitations. He has a neurologist at the [facility] in [place] with whom he can follow up. 4. Anemia of unclear etiology with normal iron stores and normal B12, but low reticulocytosis. He should have followup with primary care with eventually repeat CBC. Consider evaluation by a prepleater if it is not improving. 5. Hypertension. His blood pressure meds have been greatly reduced during his stay. He will have a nurse visit at home to ensure that his medications are organized and nurse should also follow his blood pressures. He should hold antihypertensives for systolic less than 120. He should follow up with primary care regarding optimal blood pressure management. 6. Status post lumbar surgery. He will follow up with neurosurgeon, Dr. Cosmo Musa. Greater than 30 minutes were spent on this discharge including medication reconciliation, coordination of care, and counseling the patient. The patient was seen and examined on the day of discharge. Copy requested to: [facility] /[id number]/MODL MTDD
== END 2019-01-24 13:38 | disposition home health service (06) | DRG 560 ==
LOC: BREH 16:35 → F3E 01-21 11:11
PROVIDERS: ADMIT Internal Medicine Hospice and Palliative Medicine; ATTEND Internal Medicine Hospice and Palliative Medicine
PROC: F0636ZZ Communicative/Cognitive Integration Skills Treatment of Neurological System - Whole Body (ICD-10-PCS; principal; 2019-01-13)
PROC: F07M3ZZ Motor Function Treatment of Musculoskeletal System - Whole Body (ICD-10-PCS; principal; 2019-01-13)
PROC: F08Z7ZZ Vocational Activities and Functional Community or Work Reintegration Skills Treatment (ICD-10-PCS; principal; 2019-01-13)
DX: Z47.89 Encounter for other orthopedic aftercare (principal); Z98.1 Arthrodesis status; G20 Parkinson's disease; I10 Essential (primary) hypertension; E78.5 Hyperlipidemia, unspecified; H40.9 Unspecified glaucoma; D62 Acute posthemorrhagic anemia; Z91.81 History of falling; E83.52 Hypercalcemia; M54.9 Dorsalgia, unspecified; G31.84 Mild cognitive impairment of uncertain or unknown etiology
CPT/HCPCS: 82607-90; 92507-GN; 92508-GN; 92523-GN; 97110-GO; 97110-GP; 97112-GP; 97116-GP; 97162-GP; 97166-GO; 97530-GO; 97530-GP; 97535-GO

== ENCOUNTER → 2019-02-13 | Outpatient (CLI) | payer OTHER | LOC: FIMAGING 15:12 | PROVIDERS: ATTEND Neurological Surgery | DX: Z09 Encounter for follow-up examination after completed treatment for conditions other than malignant neoplasm (principal); Z98.1 Arthrodesis status; M41.86 Other forms of scoliosis, lumbar region; M43.16 Spondylolisthesis, lumbar region ==